=== PATIENT | female | born 1930 | race Caucasian/White ===

== ENCOUNTER 2016-10-19 08:39 | Inpatient (IN) | payer OTHER, MEDICARE ==
[~2016-10-19] VITALS: Ht 152.4 cm; Wt 38.2 kg
[~2016-10-19 08:39] MED LIST: APAP325 MG PR; CALAN PO; COUGH100 MG/5 M PO; DIVALPROEX SOD125 MG PO; DULCOLAX5 MG PR; FLEET ENEMA 131 UNIT PR; FUROSEMIDE40 MG PO; IPRATROPIUM/ SOL ALB INH; LORAZEPAM INT2 MG/ML PO; MAPAP325 MG PO; MELATONIN3 MG PO; MILK OF MAGNESI30 ML PO; MIRALAX17 GM PO; MULTAQ 400MG400 MG PO; ROZEREM8 MG PO; TRANS SCOPE PAT1 PAT ID; TRAZODONE50 MG PO
--- NOTE | 2016-10-19 08:39 | NUR ---
PATIENT DIRECTLY TO CT SCAN UPON EMS ARRIVAL, ACCOMPANIED BY EMS, RN, AND DR DELGADO. REMAINS ON CARDIAC MONTIOR.
--- NOTE | 2016-10-19 08:49 | NUR ---
EKG ORDERED PER PROVIDER
--- NOTE | 2016-10-19 09:02 | CT SCAN REPORT ---
EXAMINATION: CT HEAD WITHOUT CONTRAST CLINICAL INFORMATION: Right-sided weakness. COMPARISON: 06/25/2015. TECHNIQUE: Contiguous axial images of the brain were obtained without IV contrast. DLP: 621 mGy-cm. FINDINGS: There are no pathologic extra-axial fluid collections. The lateral, third, fourth ventricles are mildly prominent, but stable, age-appropriate and concordant with the appearance of the sulci. There is no evidence for acute intraparenchymal hemorrhage or infarct. 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 There is no shift of midline structures. The paranasal sinuses and mastoid air cells are clear. There are no osseous lesions. IMPRESSION: No evidence for acute intracranial injury. Stable age-appropriate appearance of the brain. Left frontal meningioma. The aforementioned was communicated to Dr. Quiroz at 0900 hours.
--- NOTE | 2016-10-19 09:10 | ED NEURO DEFICIT/STROKE ---
See Addendum History of Present Illness General Chief Complaint: Neuro Symptoms/ Deficit Stated Complaint: BIBA R SIDED WEAKNESS Source: family, old records, EMS, [facility] Exam Limitations: clinical condition Vital Signs & Intake/Output Vital Signs & Intake/Output Vital Signs Date Time Temp Pulse Resp B/P B/P Pulse O2 O2 Flow FiO2 Mean Ox Delivery Rate 10/19 1020 97.2 126 16 122/82 100 Nasal 4.0L Cannula 10/19 0932 133 159/74 10/19 0859 98.2 133 16 159/74 96 Nasal 4.0L Cannula Allergies Coded Allergies: NO KNOWN ALLERGIES (02/13/12) Reconcile Medications Acetaminophen (Mapap) 325 MG TABLET 650 MG PO EVERY FOUR HOURS PRN PAIN OR TEMP (Reported) Divalproex Sodium 125 MG CAP.SPRINK 250 MG PO DAILY SEIZURES (Reported) Fleet Enema (Fleet Enema 135 Ml) 19 GRAM-7 GRAM/118 ML ENEMA IF BISACODYL INEFFECTIVE (Reported) Guaifenesin 100 MG/5 ML LIQUID 100 MG PO Q6 PRN COUGH (Reported) [IPRATROPIUM/ GLORIA ALB] INH 0.02 INH Q6 DYSPNEA (Reported) LORAZEPAM (Lorazepam Intensol Oral Soln 2MG/Ml) 2 MG/ML ORAL.CONC 0.5 MG PO Q8 PRN ANXIETY (Reported) Magnesium Hydroxide (Milk Of Magnesia 30ML) 400 MG/5 ML ORAL.SUSP 30 ML PO DAILY PRN CONSTIPATION (Reported) Melatonin 3 MG TAB 1 TAB PO AT BEDTIME sleep Polyethylene Glycol 3350 (Miralax) 17 GRAM/DOSE POWDER 17 GM PO DAILY PRN CONSTIPATION (Reported) Scopolamine Hydrobromide (Transderm-Scop) 1.5MG/3DAY PATCH.TD.3 DIZZINESS ( Reported) TRAZODONE HCL (Trazodone HCl) 50 MG TABLET 50 MG PO AT BEDTIME SLEEP HELP ( Reported) Verapamil (Calan 80 MG Tablet) 80 MG TAB 1 TAB PO TID heart health Triage Nurses Notes Reviewed? yes HPI: Patient sent in from extended care facility for evaluation of right-sided weakness, EKG and a left gaze. The night nurse states that at 6:30 she found her with difficulty breathing and appeared very lethargic so she put her on some oxygen. There is a nurse check on her at 7:30 and found her a phasic with right -sided weakness and left gaze. Patient does have a history of A. fib but is not on anticoagulation. Sr. states that she was bruising a lot so her anticoagulation was stopped. Past History Travel History Traveled to [place] past 21 day No Medical History Any Pertinent Medical History? 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 vitamin D deficiency, dermatitis History of MRSA: No History of VRE: No History of CDIFF: No Surgical History Surgical History: non-contributory, N Psychosocial History Who do you live with W10 Services at Home NONE What is your primary language Guinean Tobacco Use: Cognitive Impairment Family History Family History, If Any: FATHER (myocardial infarction at age 60; leukemia). MOTHER (CVA; myocardial infarction at age 75). SISTER SISTER SISTER (breast cancer at age 60). BROTHER (myocardial infarction at age 70). SISTER (lymphosarcoma). Relation not specified for: FH: Alzheimers disease Hx Contributory? No Review of Systems Review of Systems Constitutional: Reports: see HPI. Neurological/Psychological: Reports: see HPI. Physical Exam Physical Exam General Appearance: severe distress Head: atraumatic Eyes: Bilateral: other (FORCED LEFT GAZE). Ears, Nose, Throat: normal ENT inspection, DRY MUCUS MEMBRANES Neck: normal inspection, supple Respiratory: normal breath sounds, chest non-tender, no respiratory distress, lungs clear Cardiovascular: normal peripheral pulses, tachycardia, irregularly irregular Gastrointestinal: normal bowel sounds, soft Extremities: edema Psychiatric: unresponsive Cranial Nerves: abnormal eye position, abnormal gag reflex, facial asymmetry, NO GAG REFLEX Core Measures CVA/TIA Diagnosis: Yes NIH Stroke Scale: Total 27 Date Last Known Well: 10/19/16 Time Last Known Well: 729 Neurological S/S of CVA: Difficulty Speaking, Facial Hemiparesis, Right Hemiparesis Symptom Start Date: 10/19/16 Symptom Start Time: 729 Reason tPA not ordered+ Medical Contraindication Severe Sepsis Present: No Septic Shock Present: No Progress Differential Diagnosis: electrolyte imbalance, intracranial Hem., intracranial mass/tumor, stroke Plan of Care: Orders Procedure Date/time Status Admit to inpatient 10/19 1039 Active Add-on Test (ER Only) 10/19 912 Active Telemetry/Management Trainee Program Stores 10/19 912 Active URINALYSIS 10/19 912 Active Add-on Test (ER Only) 10/19 910 Active TROPONIN LEVEL 10/19 902 Complete DEPAKOTE LEVEL 10/19 902 Complete COMPREHENSIVE METABOLIC PANEL 10/19 901 Complete CBC WITHOUT DIFFERENTIAL 10/19 901 Complete EKG 10/19 0849 Active Laboratory Tests 10/19/16902: Anion Gap 7, Estimated GFR > 60, BUN/Creatinine Ratio 48.6 H, Glucose 91, Calcium 8.4, Total Bilirubin 0.7, AST 23, ALT 28, Alkaline Phosphatase 71, Troponin I < 0.01, Total Protein 6.6, Albumin 3.6, Globulin 3.0, Albumin/ Globulin Ratio 1.2, CBC w Diff MAN DIFF ORDERED, RBC 3.91 L, MCV 96.3, MCH 31.8 H, RDW 14.4, MPV 8.4, Gran % 66.4, Lymphocytes % 19.6 L, Monocytes % 11.0 H, Eosinophils % 2.5, Basophils % 0.5, Absolute Granulocytes 3.2, Absolute Lymphocytes 1.0 L, Absolute Monocytes 0.5, Absolute Eosinophils 0.1, Absolute Basophils 0, Platelet Estimate DECREASED, Polychromasia 1+, Basophilic Stippling 1+, PUBS MCHC 33.0, Valproic Acid < 10.0 L Diagnostic Imaging: Viewed by Me: CT Scan. Discussed w/RAD: CT Scan. Radiology Impression: PATIENT: ZULEMA SORTO PRESENT AGE: 86 PATIENT ACCOUNT NO: [id number] : 30 LOCATION: [facility] ORDERING PHYSICIAN: KIM LINK DO (TBS) SERVICE DATE: 10/19/16 EXAM TYPE: CAT - CT HEAD WO IV CONTRAST EXAMINATION: CT HEAD WITHOUT CONTRAST CLINICAL INFORMATION: Right-sided weakness. COMPARISON: 06/25/2015. TECHNIQUE: Contiguous axial images of the brain were obtained without IV contrast. DLP: 621 mGy-cm. FINDINGS: There are no pathologic extra-axial fluid collections. The lateral, third, fourth ventricles are mildly prominent, but stable, age- appropriate and concordant with the appearance of the sulci. There is no evidence for acute intraparenchymal hemorrhage or infarct. 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 There is no shift of midline structures. The paranasal sinuses and mastoid air cells are clear. There are no osseous lesions. IMPRESSION: No evidence for acute intracranial injury. Stable age-appropriate appearance of the brain. Left frontal meningioma. The aforementioned was communicated to Dr. Quiroz at 0900 hours. DICTATED BY: FRANCISCO SMALL MD DATE /TIME DICTATED:10/19/16851 OUTBOARD MOTOR MECHANIC:REYNALDO DATE/TIME TRANSCRIBED: 10/19/16851 CONFIDENTIAL, DO NOT COPY WITHOUT APPROPRIATE AUTHORIZATION. < Electronically signed in Other Vendor System> SIGNED BY: FRANCISCO SMALL MD 10/19/16901 Initial ED EKG: AFIB (WITH RVR), nonspecific ST T wave chg Prior EKG: unchanged Rhythm Strip: atrial fibrillation Comments: Discussed with her sister, patient is at very high risk of intracranial hemorrhage after TPA so TPA will not be given. Patient has no gag reflex. Back in 2014 the patient was DNR/DNI according to the medical records however there was no mention of this on the W 10. The sister would not like her intubated at this time however states that she will reconsider if her situation worsens. Case was discussed with Dr. Martin. He will consult on the patient. Patient has been evaluated by Dr. Lewis. Departure Departure Disposition: STILL A PATIENT Condition: Guarded Clinical Impression Primary Impression: CVA (cerebral vascular accident) Secondary Impressions: Atrial fibrillation with RVR Referrals: BLAKE DEVRIES,KARINE Workman (PCP/Family) Departure Forms: Customer Survey General Discharge Information Admission Note Spoke With: ORIANA JIMENEZ MD Documentation of Exam: Documentation of any treatments & extenuating circumstances including Concerns Regarding Discharge (functional status, medication knowledge or non-compliance, living conditions, etc.) that warrant an admission rather than observation: [ TELE MONITORING, NEUROLOGICAL CONSULTATION, CARDIOLOGY CONSULTATION, PT IS DNR/ DNI] Critical Care Note Critical Care Note Critical Care Time: mins: (90 MIN)
[2016-10-19 09:20] LABS: ABSOLUTE BASOPHIL COUNT 0 /CUMM (0.0-0.2); ABSOLUTE EOSINOPHIL COUNT 0.1 /CUMM (0.0-0.7); ABSOLUTE GRANULOCYTE CT 3.2 /CUMM (1.4-6.5); ABSOLUTE MONOCYTE COUNT 0.5 /CUMM (0.10-0.60); BASOPHIL % 0.5 % (0.0-2.0); EOSINOPHIL % 2.5 % (0-5); GRANULOCYTE % 66.4 % (42.2-75.2); HEMATOCRIT 37.7 % (37-47); MEAN CORPUSCULAR HGB 31.8 PG (27.0-31.0); MEAN CORPUSCULAR VOLUME 96.3 FL (81.0-99.0); MEAN PLATELET VOLUME 8.4 FL (7.4-10.4); PLATELET COUNT 118 /CUMM (130-400); RBC DISTRIBUTION WIDTH 14.4 % (11.5-14.5); RED BLOOD CELL CT 3.91 /CUMM (4.20-5.40); WHITE BLOOD CELL COUNT 4.9 /CUMM (4.8-10.8)
--- NOTE | 2016-10-19 09:28 | NUR ---
INSIDE SALES SUPERVISOR AT BEDSIDE PER PATIENT'S FAMILY REQUEST.
--- NOTE | 2016-10-19 09:33 | NUR ---
MEDICATED WITH 10MG CARDIZEM (SEE MAR)
--- NOTE | 2016-10-19 10:12 | NUR ---
THIS RN CALLED [facility], SPOKE WITH PTS NURSE. SHE STATED THAT THE OVERNIGHT NURSE FOUND PT AT 630AM TO BE LETHARGIC, NOT ACTING HERSELF AND HAVING SOME DIFFICULTY BREATHING, SO THEY PUT HER ON SOME OXYGEN. THE DAY NURSE THAT I SPOKE TO STATED THAT SHE SAW PT AT 730AM WITH THE RT SIDED WEAKNESS. REPORTS THAT THE TIME BEFORE 630AM THAT PT WOULD HAVE BEEN SEEN WOULD BE SOMETIME IN THE MIDDLE OF THE NIGHT. DR DELGADO AND DR KUHN AWARE.
--- NOTE | 2016-10-19 10:33 | Cons- Neurology ---
General Information and HPI Consulting Request Date of Consult: 10/19/16 Requested By: Dr Quiroz Reason for Consult: CVA Source of Information: Dr Quiroz, pt's sister, & ED RN who called ECF Exam Limitations: unable to give history History of Present Illness: 86-year-old right-handed woman with chronic atrial fibrillation not on anticoagulation reportedly due to prior bruising, ECF resident, with dementia but reportedly conversant, able to feed herself, and able to walk short distances with assist. On Depakote low-dose reportedly for mood or agitation. Overnight she reportedly slept poorly. Her sister reports that she has seemed short of breath for the past few days. The night nurse at 6:30 AM reported to her as being "lethargic" at 7:30 AM, the morning nurse noticed a leftward gaze preference and right-sided weakness. We were not able to reach the night nurse so we have no further details about her lethargic state at 6:30 AM. Here in the ED, deficits have persisted. Allergies/Medications Allergies: Coded Allergies: NO KNOWN ALLERGIES (02/13/12) Home Med List: Acetaminophen (Mapap) 325 MG TABLET 650 MG PO EVERY FOUR HOURS PRN PAIN OR TEMP (Reported) Divalproex Sodium 125 MG CAP.SPRINK 250 MG PO DAILY SEIZURES (Reported) Fleet Enema (Fleet Enema 135 Ml) 19 GRAM-7 GRAM/118 ML ENEMA IF BISACODYL INEFFECTIVE (Reported) Guaifenesin 100 MG/5 ML LIQUID 100 MG PO Q6 PRN COUGH (Reported) [IPRATROPIUM/ GLORIA ALB] INH 0.02 INH Q6 DYSPNEA (Reported) LORAZEPAM (Lorazepam Intensol Oral Soln 2MG/Ml) 2 MG/ML ORAL.CONC 0.5 MG PO Q8 PRN ANXIETY (Reported) Magnesium Hydroxide (Milk Of Magnesia 30ML) 400 MG/5 ML ORAL.SUSP 30 ML PO DAILY PRN CONSTIPATION (Reported) Melatonin 3 MG TAB 1 TAB PO AT BEDTIME sleep Polyethylene Glycol 3350 (Miralax) 17 GRAM/DOSE POWDER 17 GM PO DAILY PRN CONSTIPATION (Reported) Scopolamine Hydrobromide (Transderm-Scop) 1.5MG/3DAY PATCH.TD.3 DIZZINESS ( Reported) TRAZODONE HCL (Trazodone HCl) 50 MG TABLET 50 MG PO AT BEDTIME SLEEP HELP ( Reported) Verapamil (Calan 80 MG Tablet) 80 MG TAB 1 TAB PO TID heart health Current Medications: Current Medications Sig/Gabriel Start time Last Medication Dose Route Stop Time Status Admin Diltiazem HCl 0 .STK-MED ONE 10/19 930 DC .ROUTE Diltiazem HCl 10 MG ONCE ONE 10/19 914 DC 10/19 IV PUSH 10/20 915 0932 Past History Travel History Traveled to [place] past 21 day No Medical History Neurological: dementia EENT: presbycussis Cardiovascular: AFIB, CHF, hypertension, hyperlipidemia, 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 vitamin D deficiency, dermatitis Surgical History Surgical History: none, non-contributory Family History Relations & Conditions If Any: FATHER (myocardial infarction at age 60; leukemia). MOTHER (CVA; myocardial infarction at age 75). SISTER SISTER SISTER (breast cancer at age 60). BROTHER (myocardial infarction at age 70). SISTER (lymphosarcoma). Relation not specified for: FH: Alzheimers disease Psychosocial History Where Do You Live[facility] Primary Language: Bahraini Smoking Status: Unknown If Ever Smoked Power of Printing Press Operator Apprentice/HCP? yes (sister) Functional Ability ADLs Needs Assist: dressing, eating, toileting, bathing. Ambulation: wheelchair, arm in arm assist bed to bathroom IADLs Needs Assist: shopping, housework, finances, food prep, transportation, medication admin. Unknown: telephone. Employment History Employment: Retired Exam & Diagnostic Data Vital Signs and I&O Vital Signs Date Time Temp Pulse Resp B/P B/P Pulse O2 O2 Flow FiO2 Mean Ox Delivery Rate 10/19 1020 97.2 126 16 122/82 100 Nasal 4.0L Cannula 10/19 0932 133 159/74 10/19 0859 98.2 133 16 159/74 96 Nasal 4.0L Cannula Intake & Output 10/19 1600 10/19 0800 10/19 0000 Intake Total Output Total Balance Patient 89 lb 11.65 oz Weight Weight Bed scale Measurement Method Physical Exam: Frail-appearing, eyes closed, mildly labored respirations Head: Normocephalic atraumatic Neck: Supple Heart irregular rate and rhythm Extremities trace pedal edema with erythema bilaterally. Intact peripheral pulses Neurologic exam: Lethargic mute Follows no commands Opens eyes partially with stimulation Resists forced eye opening Leftward gaze deviation Pupils equal round and reactive to light Fundi benign Mildly flattened right nasolabial fold Tongue is midline, and she intermittently protrudes the tongue in a dyskinetic appearing fashion Hearing could not be accurately assessed, but is said to be diminished at baseline Motor: Normal spontaneous movements of the left arm and leg Flaccid paralysis of the right arm and leg Deep tendon reflexes diffusely hypoactive, more so on the right Plantar responses flexor on the left extensor on the right Last 48 Hours of Lab Results: Laboratory Tests 10/19 09 Chemistry Sodium (137 - 145 mmol/L) 143 Potassium (3.5 - 5.1 mmol/L) 4.6 Chloride (98 - 107 mmol/L) 100 Carbon Dioxide (22 - 30 mmol/L) 36 H Anion Gap (5 - 16) 7 BUN (7 - 17 mg/dL) 34 H Creatinine (0.5 - 1.0 mg/dL) 0.7 Estimated GFR (>60 ml/min) > 60 BUN/Creatinine Ratio (7 - 25 %) 48.6 H Glucose (65 - 99 mg/dL) 91 Calcium (8.4 - 10.2 mg/dL) 8.4 Total Bilirubin (0.2 - 1.3 mg/dL) 0.7 AST (14 - 36 U/L) 23 ALT (9 - 52 U/L) 28 Alkaline Phosphatase (<127 U/L) 71 Troponin I (< 0.11 ng/ml) < 0.01 Total Protein (6.3 - 8.2 g/dL) 6.6 Albumin (3.5 - 5.0 g/dL) 3.6 Globulin (1.9 - 4.2 gm/dL) 3.0 Albumin/Globulin Ratio (1.1 - 2.2 %) 1.2 Hematology CBC w Diff MAN DIFF ORDERED WBC (4.8 - 10.8 /CUMM) 4.9 RBC (4.20 - 5.40 /CUMM) 3.91 L Hgb (12.0 - 16.0 G/DL) 12.4 Hct (37 - 47 %) 37.7 MCV (81.0 - 99.0 FL) 96.3 MCH (27.0 - 31.0 PG) 31.8 H RDW (11.5 - 14.5 %) 14.4 Plt Count (130 - 400 /CUMM) 118 L MPV (7.4 - 10.4 FL) 8.4 Gran % (42.2 - 75.2 %) 66.4 Lymphocytes % (20.5 - 51.1 %) 19.6 L Monocytes % (1.7 - 9.3 %) 11.0 H Eosinophils % (0 - 5 %) 2.5 Basophils % (0.0 - 2.0 %) 0.5 Absolute Granulocytes (1.4 - 6.5 /CUMM) 3.2 Absolute Lymphocytes (1.2 - 3.4 /CUMM) 1.0 L Absolute Monocytes (0.10 - 0.60 /CUMM) 0.5 Absolute Eosinophils (0.0 - 0.7 /CUMM) 0.1 Absolute Basophils (0.0 - 0.2 /CUMM) 0 Platelet Estimate (ADEQUATE) DECREASED Polychromasia 1+ Basophilic Stippling 1+ PUBS MCHC (33.0 - 37.0 G/DL) 33.0 Toxicology Valproic Acid (50 - 120 ug/mL) < 10.0 L Imaging/Other Studies: PATIENT: ZULEMA SORTO PRESENT AGE: 86 PATIENT ACCOUNT NO: [id number] : 30 LOCATION: [facility] ORDERING PHYSICIAN: KIM LINK DO (TBS) SERVICE DATE: 10/19/16 EXAM TYPE: CAT - CT HEAD WO IV CONTRAST EXAMINATION: CT HEAD WITHOUT CONTRAST CLINICAL INFORMATION: Right-sided weakness. COMPARISON: 06/25/2015. TECHNIQUE: Contiguous axial images of the brain were obtained without IV contrast. DLP: 621 mGy-cm. FINDINGS: There are no pathologic extra-axial fluid collections. The lateral, third, fourth ventricles are mildly prominent, but stable, age-appropriate and concordant with the appearance of the sulci. There is no evidence for acute intraparenchymal hemorrhage or infarct. 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 There is no shift of midline structures. The paranasal sinuses and mastoid air cells are clear. There are no osseous lesions. IMPRESSION: No evidence for acute intracranial injury. Stable age-appropriate appearance of the brain. Left frontal meningioma. The aforementioned was communicated to Dr. Quiroz at 0900 hours. DICTATED BY: FRANCISCO SMALL MD DATE/TIME DICTATED:10/19/16851 PESTICIDE CONTROL INSPECTOR:REYNALDO DATE/TIME TRANSCRIBED:10/19/16851 CONFIDENTIAL, DO NOT COPY WITHOUT APPROPRIATE AUTHORIZATION. <Electronically signed in Other Vendor System> SIGNED BY: FRANCISCO SMALL MD 10/19/16 0902 Assessment/Plan Assessment: Acute left MCA territory ischemic stroke with uncertain onset time, approaching the 3 hour window at the time of discussions between myself, the patient's power of health care attorney, and Dr. Quiroz. Chronic atrial fibrillation, therefore likely a cardioembolic event. Recommendations: The final decision was to defer TPA Would therefore admit to telemetry with neuro checks Nothing by mouth pending swallow evaluation Hydrate with isotonic IV fluids in the meantime DVT prophylaxis with subcutaneous heparin or Lovenox Aspirin per rectum daily until able to take by mouth Statin when able to take by mouth Prognosis is guarded Carotid ultrasound is optional at this point. Regardless, she would be a suboptimal endarterectomy candidate PT, OT if her level of alertness and responsiveness improves Copies To: ANGELES DEVRIES,MATT Adler Consult Acknowledgment - Thank you for your consult request.
--- NOTE | 2016-10-19 11:02 | NUR ---
STRAIGHT CATHED PT WITH FEMALE STUDENT TIM IN ROOM. 100ML OBTAINED, SAMPLE SENT TO LAB. PT TURNED AND REPOSITIONED.
--- NOTE | 2016-10-19 11:08 | NUR ---
assumed care of pt
--- NOTE | 2016-10-19 11:23 | History & Physical ---
RAMAKRISHNA DEVRIES,FORM[facility]LY [facility] 10/19/16 1123: General Information and HPI MD Statement: I have seen and personally examined ZULEMA SORTO and documented this H&P. The patient is a 86 year old F who presented with a patient stated chief complaint of right sided weakness. 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 The patient is nonconversant, and not following any commands, and did not provide any history. History was taken from the patient's sister, who is also the power of attorney at law. She reported that at baseline the patient is able to make a small conversation especially by saying yes and no, and can communicate what she wants, is able to feed herself and is able to walk a few distant with an assist of one or 2 even without a walker. However today, between 6 AM - 7:30 AM, she was found to be awake but very lethargic, not responding to any commands. He was also found to have right-sided weakness with flaccidity in her right upper and lower extremity. Her sister also reported that she was not able to sleep too well last night and has been feeling very short of breath the past few days. Her sister reports that she has seemed short of breath for the past few days. The morning nurse noticed a leftward gaze preference and right-sided weakness. Since the patient has come to the ED the symptoms have persisted. Onto the cystoscope patient has had a history of A. fib but and accommodation was stopped by Dr. Lozano 1-2 years ago, reason unknown. She also reported that Dr. Rice is her primary construction trench digger but they have not seen him since 3-4 years The patient is unable to provide any review of systems. Allergies/Medications Allergies: Coded Allergies: NO KNOWN ALLERGIES (02/13/12) Home Med list Calcium Polycarbophil (Fiber Lax) 625 MG TABLET 1 TAB PO QPM SUPPLEMENT ( Reported) Reason to Stop at ADM: NPO Divalproex Sodium (Depakote Sprinkle) 125 MG CAP.SPRINK 1 CAP PO DAILY agitation (Reported) Reason to Stop at ADM: PO to IV Ergocalciferol (Vitamin D2) (Vitamin D2) 50,000 UNIT CAPSULE 1 CAP PO Q30D SUPPLEMENT (Reported) Reason to Stop at ADM:NPO Furosemide 20 MG TABLET 1 TAB PO DAILY FLUID (Reported) Reason to Stop at ADM: NPO, DEHYDRATED Melatonin 3 MG TABLET 1 TAB PO QPM SLEEP (Reported) Reason to Stop at ADM: LETHARGIC Mirtazapine 15 MG TABLET 0.5 TAB PO QPM DEPRESSION (Reported) Reason to Stop at ADM: AMS, NPO Trazodone HCl 50 MG TABLET 0.5 TAB PO BID DEPRESSION (Reported) Reason to Stop at ADM: NPO AND AMS Verapamil HCl (Verapamil ER) 240 MG CAP24H.PEL 1 CAP PO DAILY HTN (Reported) Reason to Stop at ADM: WILL CHANGE TO IV PT IS NPO Compliance With Home Meds: GOOD Past History Travel History Traveled to [place] past 21 day No Medical History Neurological: dementia EENT: presbycussis Cardiovascular: AFIB, CHF, hypertension, hyperlipidemia, 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 vitamin D deficiency, dermatitis History of MRSA: No History of VRE: No History of CDIFF: No Surgical History Surgical History: PACEMAKER PLACEMENT ECHO Results (as available) Date of last Echo 12/12/14 EF% 65 Past Family/Social History Family History Relations & Conditions if any FATHER (myocardial infarction at age 60; leukemia). MOTHER (CVA; myocardial infarction at age 75). SISTER SISTER SISTER (breast cancer at age 60). BROTHER (myocardial infarction at age 70). SISTER (lymphosarcoma). Relation not specified for: FH: Alzheimers disease Psychosocial History Where do you live? Long-Term Facility Primary Language: Puerto Rican Smoking Status: Unknown If Ever Smoked Power of Soldering Machine Operator Automatic/HCP? yes (sister) Functional Ability ADLs Needs Assist: dressing, eating, toileting, bathing. Ambulation: wheelchair arm in arm assist bed to bathroom IADLs Needs Assist: shopping, housework, finances, food prep, telephone, transportation, medication admin. Employment History Employment Retired Review of Systems Review of Systems Constitutional: Reports: see HPI. EENTM: Reports: see HPI. Cardiovascular: Reports: see HPI. Respiratory: Reports: see HPI. GI: Reports: see HPI. Genitourinary: Reports: see HPI. Musculoskeletal: Reports: see HPI. Skin: Reports: see HPI. Neurological/Psychological: Reports: see HPI. Hematologic/Endocrine: Reports: see HPI. Immunologic/Allergic: Reports: see HPI. Exam & Diagnostic Data Last 24 Hrs of Vital Signs/I&O Vital Signs Date Time Temp Pulse Resp B/P B/P Pulse O2 O2 Flow FiO2 Mean Ox Delivery Rate 10/19 1352 96.2 106 16 120/77 100 Nasal 4.0L Cannula 10/19 1152 97.8 121 18 136/69 100 Nasal 4.0L Cannula 10/19 1020 97.2 126 16 122/82 100 Nasal 4.0L Cannula 10/19 0932 133 159/74 10/19 0900 97 Nasal 4.0L Cannula 10/19 0859 98.2 133 16 159/74 96 Nasal 4.0L Cannula Intake & Output 10/19 1600 10/19 0800 05 0000 Intake Total Output Total Balance Patient 89 lb 11.65 oz Weight Weight Bed scale Measurement Method Physical Exam General Appearance Alert, No Acute Distress, UNABLE TO PROVIDE JT HISTORY, AWAKE BUT DOES NOT RESPOND TO ANY QUESTIONS, ORIENTATION CAN NOT BE ASSESED. cOPERATIVE DURING EXAM, VERY FRAIL AND WEAK HEENT PERRLA, DRY MUCOUS MEMBRANES Neck Supple, No JVD, TILTING TOWARDS HER LEFT SIDE Cardiovascular Normal S1, Normal S2, No Murmurs, IRREGULARLY IREEGULAR Lungs Clear to Auscultation, Normal Air Movement Abdomen Normal Bowel Sounds, Soft, No Tenderness Neurological Normal Tone, NON-VERBAL, GAIT NOT ASSESSED DOES NOT FOLLOW COMMANDS STRENGHT CAN NOT BE ASSESSED THE PATIENT IS UNABLE TO MOVE EXTREMITIES UPON COMMAND AGAINST RESISTANCE, BUT ABLE TO MOVE THEM VOLUNTARILY, RANDOMLY. RIGHT UPPER AND LOWER EXTREMITY FLACCID WITH LESS RANDOM MOVEMENTS, LEFTWARD GAZE DEVIATION, FLATTENED RIGHT NASOLABIAL FOLD, TONGUE PROTUSION BUT INTERMITTENTLY RETRACTS IT BACK IN THE MOUTH, HYPOACTIVE DTRS, POSITIVE BABINSKI ON THE RIGHT SIDE Extremities Normal Pulses, BILATERAL FEET EDEMA, COLD EXTREMITIES, PULESE PALPABLE Vascular Pulses Symmetrical Last 24 Hrs of Labs/Fransico: Laboratory Tests 10/19/16 1115: Urine Color YEL, Urine Clarity CLEAR, Urine pH 7.0, Ur Specific Lemmon 1.015, Urine Protein NEG, Urine Ketones NEG, Urine Nitrite NEG, Urine Bilirubin NEG, Urine Urobilinogen 2.0 H, Ur Leukocyte Esterase NEG, Ur Microscopic SEDIMENT EXAMINED, Urine RBC 10-15 H, Urine WBC RARE, Ur Epithelial Cells MOD H, Urine Bacteria RARE H, Urine Mucus RARE, Urine Hemoglobin SMALL H, Urine Glucose NEG 10/19/16 0903: Anion Gap 7, Estimated GFR > 60, BUN/Creatinine Ratio 48.6 H, Glucose 91, Calcium 8.4, Total Bilirubin 0.7, AST 23, ALT 28, Alkaline Phosphatase 71, Troponin I < 0.01, Total Protein 6.6, Albumin 3.6, Globulin 3.0, Albumin/ Globulin Ratio 1.2, CBC w Diff MAN DIFF ORDERED, RBC 3.91 L, MCV 96.3, MCH 31.8 H, RDW 14.4, MPV 8.4, Gran % 66.4, Lymphocytes % 19.6 L, Monocytes % 11.0 H, Eosinophils % 2.5, Basophils % 0.5, Absolute Granulocytes 3.2, Absolute Lymphocytes 1.0 L, Absolute Monocytes 0.5, Absolute Eosinophils 0.1, Absolute Basophils 0, Platelet Estimate DECREASED, Polychromasia 1+, Basophilic Stippling 1+, PUBS MCHC 33.0, Valproic Acid < 10.0 L Diagnostic Data EKG Results A FIB, 143, NO ST-T WAVE CHANGES Other Results There are no pathologic extra-axial fluid collections. The lateral, third, fourth ventricles are mildly prominent, but stable, age-appropriate and concordant with the appearance of the sulci. There is no evidence for acute intraparenchymal hemorrhage or infarct. 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 There is no shift of midline structures. The paranasal sinuses and mastoid air cells are clear. There are no osseous lesions. 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 Vitals on admission showed temperature 98.2, pulse rate of 133, respiratory rate of 16, blood pressure 159/74 oxygen saturation 96% on 4 L of nasal cannula First troponin has been negative with no significant ST-T wave EKG change except for A. fib Assessment and plan: 1. Left MCA ischemic stroke: - The patient presented with right-sided weakness, leftward gaze, intermittent temperatures fusion, nutrition completely nonverbal and not following any commands, with CT evidence of left MCA territory ischemic stroke. Although it is suggested that the symptoms might have started between 6:54 AM. As the time of onset is uncertain and the patient already approached her window, there was discussion between the neurologist, Dr. Lewis and the patient's power of attorney at law and the decision was made to defer TPA. This event is likely secondary thromboembolic because of a history of A. fib and not being on anticoagulation - The patient and placed on death claim clerk on telemetry floor - We'll check 3 sets of troponins and EKGs to rule out ACS - We'll keep the patient nothing by mouth - We'll get official swallow evaluation - 300 mg per rectal aspirin given in the ED, will continue with aspirin 300 mg per rectal daily - We'll start pravastatin once the patient is to tolerate by mouth - Start on gentle hydration with normal saline at 50 mL per hour - We will get physical therapy and occupational therapy report - We will get carotid ultrasound Doppler of all though it could also be deferred as the patient is a suboptimal candidate for surgery - We'll get an echocardiogram - Neurology is already on board 2. History of A. fib: The patient was found to be in rapid A. fib, with heart rate 150s, received 1 IV push Cardizem 10 mg - The patient has not been on any anticoagulation for a while and was stopped, as is unknown - She has not been compliant with her follow-ups with Dr. Toro either - As the patient is nothing by mouth awaiting official swallow eval, will hold off on by mouth Cardizem and if needed will start IV Cardizem when necessary to control the rate - However, if the rate continues to remain fast and she there is a likelihood she will require frequent cardizem pushes, will then start IV Cardizem drip, untill she is able to take PO 3. History of dementia/mood disorder/agitation: The patient is apparently on low-dose of Depakote for mood disorder/agitation as per her sister, and not for a seizure disorder - We consider starting on low-dose Depakote IV if needed in case of agitation 4. History of diastolic CHF: - Currently the patient does not seem to be in florid CHF in fact is dehydrated, and altered - Because we are keeping him nothing by mouth, will hold Lasix - We will provide gentle hydration 4. As patient is nothing by mouth will hold off on mirtazapine, trazodone, ergocalciferol, fibri and melatonin 5. Nothing by mouth 6. Subcutaneous heparin for DVT prophylaxis 7. CODE STATUS: The Depakote and states the patient is DNI/DNR however while having a conversation with the patient's sister/who is also power of attorney at law she was very hesitant in making the patient DNR. She does not want the patient to be intubated as the patient would not want that either but she wants "something" done in case of an emergency or if she goes into cardiac arrest. Had a very long discussion with the patient's sister explaining her the pros and cons of CPR especially in an old frail lady was a small habitus, osteoporotic/brittle bones and increased AP diameter. She finally decided to give Zulema at least 24 hours and see how she responds to conservative/medical treatment before she makes a decision to change her to a complete DNI DNR. The patient has poor prognosis and would be beneficial for Dr. Lozano/Dr. Larry and the medical team to have a conversation with the patient's power of attorney at law in the next 24 hours regarding her CODE STATUS and prognosis. A main fact benefit from being comfort. As Ranked By This Provider Problem List: 1. ATRIAL FIBRILATION 2. Dementia 3. Cardiac pacemaker procedure 4. Benign essential hypertension 5. CVA (cerebral vascular accident) Core Measures/Miscellaneous Acute Coronary Syndrome ACS Diagnosis: No Cerebrovascular Accident CVA/TIA Diagnosis: Yes NIH Stroke Scale: Total 12 Date Last Known Well: 10/19/16 Time Last Known Well: 729 Neurological S/S of CVA: Difficulty Speaking, Facial Hemiparesis, Right Hemiparesis Symptom Start Date: 10/19/16 Symptom Start Time: 0730 Reason tPA not ordered Medical Contraindication Bedside Swallow Eval Done: Yes Result of Evaluation: Fail (no gag reflex) Antithrombotic: Yes AFIB: Atrial Fibrillation Aflutter: No Anticoagulant: No No Anticoag d/t: Medication Refused (unknown why not on AC) Evidence of Atherosclerosis: Yes LDL Assessed Within 24 Hours: Yes Currently on Statin: Yes (once able to take PO) Rehab Needs Assessed: Medical Eval for Rehab PT Consult Ordered: Yes Congestive Heart Failure CHF Diagnosis: No Venous Thromboembolism VTE Risk Factors: Acute medical illness, Age > 40 No [facility] VTE prophylaxis d/t: No contraindications No VTE Pharm Prophylaxis d/t: No contraindications VTE Diagnosis: No VTE Type: NONE VTE Confirmed by (Test): NONE Severe Sepsis Severe Sepsis Present: No Septic Shock Septic Shock Present: No Miscellaneous Documentation Attending Case Discussed With: ORIANA JIMENEZ MD Primary Care Physician: KARINE LOZANO MD Patient sees these Specialists Dr. Rice ( along time ago) Dr. Lozano (PCP) Level of Patient Care: Telemetry Consults Needed: 1 Consulting Specialty: Cardiology Consulting Physician: Dr. Martin Reason for Consult: STROKE/A FIB Consults Needed: 2 Consulting Specialty: Neurology Consulting Physician: Dr. Lewis Reason for Consult: STROKE Resident Review Statement Resident Statement: examined this patient, discussed with family, reviewed EMR data (avail), discussed with nursing, reviewed images Other Findings: Same as Above ORIANA JIMENEZ MD 10/19/16 1524: Exam & Diagnostic Data Last 24 Hrs of Vital Signs/I&O Vital Signs Date Time Temp Pulse Resp B/P B/P Pulse O2 O2 Flow FiO2 Mean Ox Delivery Rate 10/19 1352 96.2 106 16 120/77 100 Nasal 4.0L Cannula 10/19 1152 97.8 121 18 136/69 100 Nasal 4.0L Cannula 10/19 1020 97.2 126 16 122/82 100 Nasal 4.0L Cannula 10/19 0932 133 159/74 10/19 0900 97 Nasal 4.0L Cannula 10/19 0859 98.2 133 16 159/74 96 Nasal 4.0L Cannula Intake & Output 10/19 1600 10/19 0800 10/19 0000 Intake Total Output Total Balance Patient 89 lb 11.65 oz Weight Weight Bed scale Measurement Method Attending MD Review Statement Attending Statement Attending MD Statement: examined this patient, discuss w/resident/PA/REVENUE TAX SPECIALIST, agreed w/resident/PA/REVENUE TAX SPECIALIST, discussed with family, reviewed EMR data (avail), reviewed images, amended to note Attending Assessment/Plan: Ms. Sorto is an 86-year-old resident of a long term facility who was noted to have a change in mental status earlier today. She presented to the ED with a dense right hemiparesis and gaze preference to the left. Past medical history was notable for atrial fibrillation (presently not on anticoagulants), dementia, and mood disorder treated with Depakote. Her vital signs are stable at present. Exam is notable for flaccid left hemiparesis and leftward gaze. A discussion was undertaken with patient's sister concerning the patient's treatment. At this time the sister requests a DNI status but is not willing to institute DNR status at this time. We will admit patient to telemetry and monitor her heart rate. She will be started on intravenous fluids. A swallow evaluation will be obtained and the patient will be made NPO until this is accomplished. Maintenance medications normally given by mouth will be held. Rate control if needed will be via IV diltiazem. Dr. Lewis's input is greatly appreciated.
--- NOTE | 2016-10-19 13:53 | NUR ---
FAMILY UPDATED WITH POC/ADMISSION.
[2016-10-19] MEDS ORDERED: FUROSEMIDE20 M1 PO (14:07)
[2016-10-19] MEDS ORDERED: VITAMIN D250000 UNIT PO (14:07)
[2016-10-19] MEDS ORDERED: VERAPAMIL ER240 MG PO (14:10)
[2016-10-19] MEDS ORDERED: MELATONIN3 M4 PO (14:11)
[2016-10-19] MEDS ORDERED: MIRTAZAPINE15 M2 PO (14:11)
[2016-10-19] MEDS ORDERED: DEPAKOTE SPRIN125 M1 PO ×2 (14:11→18:52)
[2016-10-19] MEDS ORDERED: FIBER LAX625 MG PO (14:12)
[2016-10-19] MEDS ORDERED: TRAZODONE HCL50 M1 PO ×2 (14:13→14:14)
--- NOTE | 2016-10-19 14:31 | NUR ---
NS INFUSING, MEDICATED ORDERED (SEE MAR)
--- NOTE | 2016-10-19 14:36 | NUR ---
PT ASSIGNED ROOM 172 BED 1.
--- NOTE | 2016-10-19 15:21 | Admission Certification ---
Admission Certification Certification Statement - As attending physician, I certify that at the time of - admission, based on clinical presentation, severity of - symptoms, need for further diagnostic testing and - therapeutic interventions, and risk of adverse outcomes - without in-hospital treatment, in my clinical assessment, - this patient requires an acute hospital stay for a minimum - of two nights or longer. I have also considered psychsocial - factors such as support system, advanced age, financial - issues, cognitive issues, and failed out-patient treatments, - past re-admission history, safety of patient, and lack of - compliance as applicable. Specific rationale supporting this admission is: Evaluation and treatment of acute left hemisphere bland infarct.
--- NOTE | 2016-10-19 15:53 | NUR ---
PT HAS A BED [id number]
--- NOTE | 2016-10-19 16:03 | NUR ---
REPORT CALLED TO NAHID
--- NOTE | 2016-10-19 17:18 | Cons- Cardiology ---
General Information and HPI Consulting Request Date of Consult: 10/19/16 Requested By: ORIANA JIMENEZ MD Reason for Consult: Stroke syndrome. Source of Information: old records Exam Limitations: not alert/orientated, clinical condition History of Present Illness: Mrs. 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 In the ED a CT of the head was performed and this is 10/19/2016 that revealedNo evidence for acute intracranial injury. Stable age-appropriate appearance of the brain. Left frontal meningioma. Allergies/Medications Allergies: Coded Allergies: NO KNOWN ALLERGIES (02/13/12) Home Med List: Calcium Polycarbophil (Fiber Lax) 625 MG TABLET 1 TAB PO QPM SUPPLEMENT ( Reported) Reason to Stop at ADM: NPO Divalproex Sodium (Depakote Sprinkle) 125 MG CAP.SPRINK 1 CAP PO DAILY agitation (Reported) Reason to Stop at ADM: PO to IV Ergocalciferol (Vitamin D2) (Vitamin D2) 50,000 UNIT CAPSULE 1 CAP PO Q30D SUPPLEMENT (Reported) Reason to Stop at ADM:NPO Furosemide 20 MG TABLET 1 TAB PO DAILY FLUID (Reported) Reason to Stop at ADM: NPO, DEHYDRATED Melatonin 3 MG TABLET 1 TAB PO QPM SLEEP (Reported) Reason to Stop at ADM: LETHARGIC Mirtazapine 15 MG TABLET 0.5 TAB PO QPM DEPRESSION (Reported) Reason to Stop at ADM: AMS, NPO Trazodone HCl 50 MG TABLET 0.5 TAB PO BID DEPRESSION (Reported) Reason to Stop at ADM: NPO AND AMS Verapamil HCl (Verapamil ER) 240 MG CAP24H.PEL 1 CAP PO DAILY HTN (Reported) Reason to Stop at ADM: WILL CHANGE TO IV PT IS NPO Past History Travel History Traveled to [place] past 21 day No Medical History Neurological: dementia EENT: presbycussis Cardiovascular: AFIB, CHF, hypertension, hyperlipidemia, 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 vitamin D deficiency, dermatitis Surgical History Surgical History: PACEMAKER PLACEMENT Family History Relations & Conditions If Any: FATHER (myocardial infarction at age 60; leukemia). MOTHER (CVA; myocardial infarction at age 75). SISTER SISTER SISTER (breast cancer at age 60). BROTHER (myocardial infarction at age 70). SISTER (lymphosarcoma). Relation not specified for: FH: Alzheimers disease Psychosocial History Where Do You Live? [facility] Primary Language: Citizen Of [place] Smoking Status: Unknown If Ever Smoked Power of Machine Wiper/HCP? yes (sister) Functional Ability ADLs Needs Assist: dressing, eating, toileting, bathing. Ambulation: wheelchair arm in arm assist bed to bathroom IADLs Needs Assist: shopping, housework, finances, food prep, telephone, transportation, medication admin. Employment History Employment: Retired ECHO Results (as available) Date of last Echo 12/12/14 EF% 65 Exam & Diagnostic Data Vital Signs and I&O Vital Signs Date Time Temp Pulse Resp B/P B/P Pulse O2 O2 Flow FiO2 Mean Ox Delivery Rate 10/19 1352 96.2 106 16 120/77 100 Nasal 4.0L Cannula 10/19 1152 97.8 121 18 136/69 100 Nasal 4.0L Cannula 10/19 1020 97.2 126 16 122/82 100 Nasal 4.0L Cannula 10/19 0932 133 159/74 10/19 0900 97 Nasal 4.0L Cannula 10/19 0859 98.2 133 16 159/74 96 Nasal 4.0L Cannula Intake & Output 10/19 1600 10/19 0800 10/19 0000 10/18 1600 10/18 0800 10/18 0000 Intake Total Output Total Balance Patient 89 lb 11.65 oz Weight Weight Bed scale Measurement Method Physical Exam: Elderly lethargic and nonverbal female. Vital signs: See above. HEENT: Normocephalic, atraumatic, dry mucous membranes. Neck: No JVD, no bruits. Lungs: clear to ausculation. Heart: S1, S2 (irregularly, irregular). Abdomen: Soft, nontender, positive bowel sounds. Extremities: 1+ edema. Labs/[place]ico Results: Laboratory Tests 10/19 10/19 1600 1115 Chemistry Troponin I (< 0.11 ng/ml) < 0.01 Urines Urine Color (YEL,AMB,STR) YEL Urine Clarity (CLEAR) CLEAR Urine pH (5.0 - 8.0) 7.0 Ur Specific [place] (1.001 - 1.035) 1.015 Urine Protein (NEG,<30 MG/DL) NEG Urine Ketones (NEG) NEG Urine Nitrite (NEG) NEG Urine Bilirubin (NEG) NEG Urine Urobilinogen (0.1 - 1.0 EU/dl) 2.0 H Ur Leukocyte Esterase (NEG) NEG Ur Microscopic SEDIMENT EXAMINED Urine RBC (0 - 5 /HPF) 10-15 H Urine WBC (0 - 2 /HPF) RARE Ur Epithelial Cells (NONE,FEW) MOD H Urine Bacteria (NEG/NONE) RARE H Urine Mucus (FEW,NONE) RARE Urine Hemoglobin (NEG) SMALL H Urine Glucose (N MG/DL) NEG 10/19 0903 Chemistry Sodium (137 - 145 mmol/L) 143 Potassium (3.5 - 5.1 mmol/L) 4.6 Chloride (98 - 107 mmol/L) 100 Carbon Dioxide (22 - 30 mmol/L) 36 H Anion Gap (5 - 16) 7 BUN (7 - 17 mg/dL) 34 H Creatinine (0.5 - 1.0 mg/dL) 0.7 Estimated GFR (>60 ml/min) > 60 BUN/Creatinine Ratio (7 - 25 %) 48.6 H Glucose (65 - 99 mg/dL) 91 Calcium (8.4 - 10.2 mg/dL) 8.4 Total Bilirubin (0.2 - 1.3 mg/dL) 0.7 AST (14 - 36 U/L) 23 ALT (9 - 52 U/L) 28 Alkaline Phosphatase (<127 U/L) 71 Troponin I (< 0.11 ng/ml) < 0.01 Total Protein (6.3 - 8.2 g/dL) 6.6 Albumin (3.5 - 5.0 g/dL) 3.6 Globulin (1.9 - 4.2 gm/dL) 3.0 Albumin/Globulin Ratio (1.1 - 2.2 %) 1.2 Hematology CBC w Diff MAN DIFF ORDERED WBC (4.8 - 10.8 /CUMM) 4.9 RBC (4.20 - 5.40 /CUMM) 3.91 L Hgb (12.0 - 16.0 G/DL) 12.4 Hct (37 - 47 %) 37.7 MCV (81.0 - 99.0 FL) 96.3 MCH (27.0 - 31.0 PG) 31.8 H RDW (11.5 - 14.5 %) 14.4 Plt Count (130 - 400 /CUMM) 118 L MPV (7.4 - 10.4 FL) 8.4 Gran % (42.2 - 75.2 %) 66.4 Lymphocytes % (20.5 - 51.1 %) 19.6 L Monocytes % (1.7 - 9.3 %) 11.0 H Eosinophils % (0 - 5 %) 2.5 Basophils % (0.0 - 2.0 %) 0.5 Absolute Granulocytes (1.4 - 6.5 /CUMM) 3.2 Absolute Lymphocytes (1.2 - 3.4 /CUMM) 1.0 L Absolute Monocytes (0.10 - 0.60 /CUMM) 0.5 Absolute Eosinophils (0.0 - 0.7 /CUMM) 0.1 Absolute Basophils (0.0 - 0.2 /CUMM) 0 Platelet Estimate (ADEQUATE) DECREASED Polychromasia 1+ Basophilic Stippling 1+ PUBS MCHC (33.0 - 37.0 G/DL) 33.0 Toxicology Valproic Acid (50 - 120 ug/mL) < 10.0 L Diagnostic Data EKG Results (10/19/2016): Atrial fibrillation with a rapid mean ventricular response, right axis deviation, nonspecific T-wave abnormalities in diffuse leads. Slightly slow rate since previous tracing (06/25/2015). Other Results Head CT (10/19/2016): No evidence for acute intracranial injury. Stable age-appropriate appearance of the brain. Left frontal meningioma. Echocardiogram (12/12/2014): Normal size left ventricle. Mild concentric left ventricular hypertrophy. No obvious regional wall motion abnormalities. Normal left ventricular ejection fraction visually estimated at >65%. ormal right ventricular size and function. Catheter/pacemaker wire in the right ventricular cavity. Mild to moderate right atrial dilatation. Catheter/pacemaker wire in the right atrial cavity. Normal left atrial size. Mild mitral regurgitation. Trace aortic regurgitation. Mild tricuspid regurgitation. Moderate pulmonary hypertension. [id number] pulmonic regurgitation. Assessment/Plan Assessment/Plan Acute left MCA territory ischemic stroke of uncertain onset time, likely cardioembolic in etiology given known history of atrial fibrillation without anticoagulation in this elderly female. Discussions between the ED attending (Siddhartha Quiroz M.D.), neurology (Kisha Lewis M.D.) and the patient's power of trial attorney culminated in a decision to defer TPA. Recommendations: * Telemetry admission with neuro checks. * Nothing by mouth until swallowing evaluation. * Gentle IV hydration. * Antiplatelet therapy with aspirin per rectum until swallowing evaluation performed. * Statin therapy when able to take by mouth. * Echocardiogram to assess left ventricular function and cardioembolic source for stroke. * Consider carotid ultrasound. * No MRI given non-MRI safe pacemaker. * Defer anticoagulation to avoid hemorrhagic transformation. * DVT prophylaxis. * Occupational, physical, speech therapy. Further recommendations to follow, Thank you. Consult Acknowledgment - Thank you for your consult request. - Thank you for your consult request.
[2016-10-19 19:02] VITALS: BP 120/60
[2016-10-19 23:57] VITALS: BP 100/68
--- NOTE | 2016-10-20 08:38 | PN- Neurology ---
Subjective Subjective: Opens eyes to voice Grasping her weak right hand with her left hand Review of Systems: Unobtainable due to a aphasia Objective Vital Signs and I&Os Vital Signs Date Time Temp Pulse Resp B/P B/P Pulse O2 O2 Flow FiO2 Mean Ox Delivery Rate 10/20 0000 Nasal 2.0L Cannula 10/19 2357 98.4 95 28 100/68 94 Nasal 2.5L Cannula 10/19 1912 139 120/60 10/19 1902 127 120/60 10/19 1800 95 Nasal 2.0L Cannula 10/19 1716 97.0 101 18 120/84 99 Nasal 3.0L Cannula 10/19 1352 96.2 106 16 120/77 100 Nasal 4.0L Cannula 10/19 1152 97.8 121 18 136/69 100 Nasal 4.0L Cannula 10/19 1020 97.2 126 16 122/82 100 Nasal 4.0L Cannula 10/19 0932 133 159/74 10/19 0900 97 Nasal 4.0L Cannula 10/19 0859 98.2 133 16 159/74 96 Nasal 4.0L Cannula Intake & Output 10/20 1600 10/20 0800 10/20 0000 10/19 1600 10/19 0800 10/19 0000 Intake Total 460 250 Output Total Balance 460 250 Intake, IV 460 250 Intake, Oral 0 0 Number 1 2 Bowel Movements Patient 84 lb 1.98 oz 89 lb 11.65 oz Weight Weight Bernie Lift Bed scale Measurement Method Physical Exam: More alert Opens eyes to voice Left gaze deviation resolved Global aphasia Right hemiplegia, flaccid Current Medications: Current Medications Sig/Gabriel Start time Last Medication Dose Route Stop Time Status Admin Acetaminophen 650 MG Q6P PRN 10/19 1400 AC PO Acetaminophen 600 MG Q6P PRN 10/19 1400 AC IV Aspirin 300 MG DAILY 10/20 1000 AC KY Aspirin 300 MG ONCE ONE 10/19 1115 DC 10/19 [place] 10/19 1116 1236 Atorvastatin Calcium 80 MG 1700 10/19 1700 AC PO Diltiazem HCl 125 MG Q24H 10/19 1930 AC 10/19 Sodium Chloride 100 ML IV 210 Diltiazem HCl 5 MG Q4 HRS NEEDED PRN 10/19 1630 DC 10/19 IV PUSH 1912 Diltiazem HCl 0 .STK-MED ONE 10/19 0931 DC .ROUTE Diltiazem HCl 10 MG ONCE ONE 10/19 0915 DC 10/19 IV PUSH 10/19 0916 0932 Heparin Sodium 0 .STK-MED ONE 10/19 1426 DC (Porcine) .ROUTE Heparin Sodium 5,000 UNIT Q8 10/19 1400 AC 10/20 (Porcine) SC 0523 Morphine Sulfate 2 MG Q4P PRN 10/19 1400 AC IV Sodium Chloride 1,000 ML Q20H 10/19 1400 AC 10/19 IV 1431 Valproate Sodium 125 MG DAILY PRN 10/19 1900 AC Sodium Chloride 100 ML IV Results Last 24 Hours of Lab Results: Laboratory Tests 10/20 10/19 10/19 0030 2100 1600 Chemistry Troponin I (< 0.11 ng/ml) < 0.01 Cancelled < 0.01 10/19 10/19 1115 0903 Chemistry Sodium (137 - 145 mmol/L) 143 Potassium (3.5 - 5.1 mmol/L) 4.6 Chloride (98 - 107 mmol/L) 100 Carbon Dioxide (22 - 30 mmol/L) 36 H Anion Gap (5 - 16) 7 BUN (7 - 17 mg/dL) 34 H Creatinine (0.5 - 1.0 mg/dL) 0.7 Estimated GFR (>60 ml/min) > 60 BUN/Creatinine Ratio (7 - 25 %) 48.6 H Glucose (65 - 99 mg/dL) 91 Calcium (8.4 - 10.2 mg/dL) 8.4 Total Bilirubin (0.2 - 1.3 mg/dL) 0.7 AST (14 - 36 U/L) 23 ALT (9 - 52 U/L) 28 Alkaline Phosphatase (<127 U/L) 71 Troponin I (< 0.11 ng/ml) < 0.01 Total Protein (6.3 - 8.2 g/dL) 6.6 Albumin (3.5 - 5.0 g/dL) 3.6 Globulin (1.9 - 4.2 gm/dL) 3.0 Albumin/Globulin Ratio (1.1 - 2.2 %) 1.2 Hematology CBC w Diff MAN DIFF ORDERED WBC (4.8 - 10.8 /CUMM) 4.9 RBC (4.20 - 5.40 /CUMM) 3.91 L Hgb (12.0 - 16.0 G/DL) 12.4 Hct (37 - 47 %) 37.7 MCV (81.0 - 99.0 FL) 96.3 MCH (27.0 - 31.0 PG) 31.8 H RDW (11.5 - 14.5 %) 14.4 Plt Count (130 - 400 /CUMM) 118 L MPV (7.4 - 10.4 FL) 8.4 Gran % (42.2 - 75.2 %) 66.4 Lymphocytes % (20.5 - 51.1 %) 19.6 L Monocytes % (1.7 - 9.3 %) 11.0 H Eosinophils % (0 - 5 %) 2.5 Basophils % (0.0 - 2.0 %) 0.5 Absolute Granulocytes (1.4 - 6.5 /CUMM) 3.2 Absolute Lymphocytes (1.2 - 3.4 /CUMM) 1.0 L Absolute Monocytes (0.10 - 0.60 /CUMM) 0.5 Absolute Eosinophils (0.0 - 0.7 /CUMM) 0.1 Absolute Basophils (0.0 - 0.2 /CUMM) 0 Platelet Estimate (ADEQUATE) DECREASED Polychromasia 1+ Basophilic Stippling 1+ PUBS MCHC (33.0 - 37.0 G/DL) 33.0 Toxicology Valproic Acid (50 - 120 ug/mL) < 10.0 L Urines Urine Color (YEL,AMB,STR) YEL Urine Clarity (CLEAR) CLEAR Urine pH (5.0 - 8.0) 7.0 Ur Specific [place] (1.001 - 1.035) 1.015 Urine Protein (NEG,<30 MG/DL) NEG Urine Ketones (NEG) NEG Urine Nitrite (NEG) NEG Urine Bilirubin (NEG) NEG Urine Urobilinogen (0.1 - 1.0 EU/dl) 2.0 H Ur Leukocyte Esterase (NEG) NEG Ur Microscopic SEDIMENT EXAMINED Urine RBC (0 - 5 /HPF) 10-15 H Urine WBC (0 - 2 /HPF) RARE Ur Epithelial Cells (NONE,FEW) MOD H Urine Bacteria (NEG/NONE) RARE H Urine Mucus (FEW,NONE) RARE Urine Hemoglobin (NEG) SMALL H Urine Glucose (N MG/DL) NEG Assessment/Plan Assessment: Presumably moderate sized acute left MCA territory ischemic stroke Did not receive TPA ultimately due to uncertain timing. History of atrial fibrillation, cardioembolic source suspected Plan: Repeat head CT Fasting lipid profile Nothing by mouth pending swallow evaluation Hydrate with isotonic IV fluids in the meantime DVT prophylaxis with subcutaneous heparin or Lovenox Aspirin per rectum daily until able to take by mouth Statin when able to take by mouth PT, OT, ST, swallow evaluation
[2016-10-20 08:47] VITALS: BP 112/60
--- NOTE | 2016-10-20 10:01 | PN- Housestaff ---
Subjective Follow-up For: Left MCA ischemic stroke Complaints: no complaints Tele-Events Since Last Visit: Atrial fibrillation, no overnight cardiac events Subjective: She was seen and examined this morning. She was lying comfortably on bed and trying to open her eyes on calling her name but not obeyingt any commands. Her heart rate is under reasonable range on Cardizem drip at 7.5. Formal swallow evaluation is still pending. Patient is somnolent and bedside swallow is not possible. Review of Systems Constitutional: Denies: chills, diaphoresis, fever. Cardiovascular: Denies: chest pain, edema. Respiratory: Denies: cough, hemoptysis. Gastrointestinal: Denies: constipation, diarrhea. Neurological/Psychological: Reports: unable to move lower ext, unable to move upper ext. Objective Last 24 Hrs of Vital Signs/I&O Vital Signs Date Time Temp Pulse Resp B/P B/P Pulse O2 O2 Flow FiO2 Mean Ox Delivery Rate 10/20 0847 98.1 77 22 112/60 90 Nasal 2.5L Cannula 10/20 0800 94 Nasal 2.0L Cannula 10/20 0000 Nasal 2.0L Cannula 10/19 2357 98.4 95 28 100/68 94 Nasal 2.5L Cannula 10/19 1912 139 120/60 10/19 1902 127 120/60 10/19 1800 95 Nasal 2.0L Cannula 10/19 1716 97.0 101 18 120/84 99 Nasal 3.0L Cannula 10/19 1352 96.2 106 16 120/77 100 Nasal 4.0L Cannula Intake & Output 10/20 1600 10/20 0800 10/20 0000 Intake Total 460 250 Output Total Balance 460 250 Intake, IV 460 250 Intake, Oral 0 0 Number 1 2 Bowel Movements Patient 84 lb 1.98 oz Weight Weight Bernie Lift Measurement Method Physical Exam General Appearance: somnolent and not abeying commands Cardiovascular: irregularly irregular Lungs: Normal Air Movement Neurological: aphasia Extremities: No Clubbing, No Cyanosis Current Medications: Current Medications Sig/Gabriel Start time Last Medication Dose Route Stop Time Status Admin Acetaminophen 650 MG Q6P PRN 10/19 1400 AC PO Acetaminophen 600 MG Q6P PRN 10/19 1400 AC IV Aspirin 300 MG DAILY 10/20 1000 AC [place] Atorvastatin Calcium 80 MG 1700 10/19 1700 AC PO Dextrose/Sodium 1,000 ML Q20H 10/20 0945 AC 10/20 Chloride IV 1050 Diltiazem HCl 125 MG Q24H 10/19 1930 AC 10/19 Sodium Chloride 100 ML IV 2102 Diltiazem HCl 5 MG Q4 HRS NEEDED PRN 10/19 1630 DC 10/19 IV PUSH 1912 Heparin Sodium 0 .STK-MED ONE 10/19 1426 DC (Porcine) .ROUTE Heparin Sodium 5,000 UNIT Q8 10/19 1400 AC 10/20 (Porcine) SC 0523 Morphine Sulfate 2 MG Q4P PRN 10/19 1400 AC IV Sodium Chloride 1,000 ML Q20H 10/19 1400 DC 10/19 IV 1431 Valproate Sodium 125 MG DAILY PRN 10/19 1900 AC Sodium Chloride 100 ML IV Last 24 Hrs of Lab/Fransico Results Last 24 Hrs of Labs/Mics: Laboratory Tests 10/20/16 0030: Troponin I < 0.01 10/19/16 2100: Troponin I Cancelled 10/19/16 1600: Troponin I < 0.01 Assessment/Plan Assessment: 84-year-old woman with past medical history of dementia, COPD not on home oxygen according to the sister, dementia, interstitial lung disease, hyperlipidemia, hypertension, atrial fibrillation not on anticoagulation, tachycardia bradycardia syndrome s/p permanent pacemaker (non-MRI compliant) implantation, noncompliant with her follow-ups, who presents to the ED from the halfway right-sided weakness, altered mental status, left-sided gaze, found to have evidence of acute left MCA territory ischemic stroke, admitted to telemetry for further management and evaluation. Vitals on admission showed temperature 98.2, pulse rate of 133, respiratory rate of 16, blood pressure 159/74 oxygen saturation 96% on 4 L of nasal cannula First troponin has been negative with no significant ST-T wave EKG change except for A. fib Assessment and plan: 1. Left MCA ischemic stroke: - * Patient was assessed by neurology and we will repeat CAT scan today * We will send lipid profile and patient will start on statins as she passed swallow well to take by mouth * PT/OT evaluation in a.m. along with formal swallow evaluation 2. History of A. fib: The patient was found to be in rapid A. fib, with heart rate 150s, received 1 IV push Cardizem 10 mg - The patient has not been on any anticoagulation for a while and was stopped, as is unknown - She has not been compliant with her follow-ups with Dr. Rice either - As the patient is nothing by mouth awaiting official swallow eval, will hold off on by mouth Cardizem and currently her heart rate is controlled on 7.5 IV Cardizem drip 3. History of dementia/mood disorder/agitation: The patient is apparently on low-dose of Depakote for mood disorder/agitation as per her sister, and not for a seizure disorder - We will continue Depakote 4. History of diastolic CHF: - Currently the patient does not seem to be in florid CHF in fact is dehydrated, and altered - Because we are keeping him nothing by mouth, will hold Lasix - We will provide gentle hydration 4. As patient is nothing by mouth will hold off on mirtazapine, trazodone, ergocalciferol, fibri and melatonin 5. Nothing by mouth 6. Subcutaneous heparin for DVT prophylaxis 7. CODE STATUS: patient is DNI/DNR however while having a conversation with the patient's sister /who is also power of claims examiner she was very hesitant in making the patient DNR. She does not want the patient to be intubated as the patient would not want that either but she wants "something" done in case of an emergency or if she goes into cardiac arrest. Had a very long discussion with the patient's sister explaining her the pros and cons of CPR especially in an old frail lady was a small habitus, osteoporotic/brittle bones and increased AP diameter. She finally decided to give Coleen at least 24 hours and see how she responds to conservative/medical treatment before she makes a decision to change her to a complete DNI DNR. Problem List: 1. ATRIAL FIBRILATION 2. CVA (cerebral vascular accident) Pain Ratin Pain Location: not aplicable Pain Goal: Remain pain free Pain Plan: tylenol Tomorrow's Labs & Rationales: cbc and bep Consulting Request: Consulting Specialty: Neurology Consulting Physician: Dr. Lewis Reason for Consult: STROKE
--- NOTE | 2016-10-20 11:22 | PN- Att Addend ---
Attending Addendum Attending Brief Note Mrs. Davison was visited and examined in the presence of her sister. She is somewhat more alert today as she opens her eyes to voice but does not follow commands. She is on contact precautions. She is now receiving D5 half-normal saline and a diltiazem infusion for rate control. She is afebrile. Heart rate is elevated at up to 130. Blood pressure and oxygen saturation are satisfactory. She appears to be in no acute distress. Her lungs are clear anteriorly. Her heart rate is mildly tachycardic and irregularly irregular. Her abdomen is benign. Neurologic exam is notable for right field cut and dense right flaccid hemiparesis. CBC and laboratory determinations are satisfactory. We await swallowing evaluation, OT, and PT input. We will control her heart rate with intravenous diltiazem. We will follow her serum glucose with every shift Accu-Cheks. We will continue her aspirin per rectum and her Depakote intravenously. We will initiate her statin once the patient is clear to take by mouth. I agree with a follow-up CT to determine the extent of her infarct.
--- NOTE | 2016-10-20 11:47 | ULTRASOUND REPORT ---
EXAMINATION: DUPLEX BILATERAL CAROTID ULTRASOUND CLINICAL INFORMATION: Right-sided weakness. COMPARISON: Carotid duplex dated 03/26/2010. TECHNIQUE: Real-time ultrasound and Doppler techniques (integrating B-mode 2D vascular images, Doppler spectral analysis and color flow Doppler imaging) were utilized to interrogate the extracranial carotid and vertebral arteries bilaterally. FINDINGS: Right side: 1. There is mild hyperechoic plaque in the ECA/ICA region. 2. The common carotid artery velocity is 62 cm/s. 3. The proximal internal carotid artery velocities are 65 cm/s systolic and 10 cm/s diastolic. 4. The external carotid artery velocity is 159 cm/s. Left side: 1. There is mild hyperechoic plaque in the ECA/ICA region. 2. The common carotid artery velocity is 77 cm/s. 3. The proximal internal carotid artery velocities are 39 cm/s systolic and 7 cm/s diastolic. 4. The external carotid artery velocity is 94 cm/s. ADDITIONAL FINDINGS: 1. The vertebral arteries show antegrade flow. 2. The brachial artery pressures are symmetric. IMPRESSION: 1. RIGHT: Minimal, nonhemodynamically significant stenosis of the proximal right internal carotid artery corresponding to a 0-49% stenosis by velocity criteria. 2. LEFT: Minimal, nonhemodynamically significant stenosis of the proximal left internal carotid artery corresponding to a 0-49% stenosis by velocity criteria. 3. Antegrade flow is seen via the bilateral vertebral arteries.
--- NOTE | 2016-10-20 13:44 | CT SCAN REPORT ---
EXAMINATION: CT HEAD WITHOUT CONTRAST CLINICAL INFORMATION: Stroke with right-sided weakness. COMPARISON: Prior head CT examinations, most recently 10/19/2016. TECHNIQUE: Contiguous axial imaging was performed from the skull base to vertex without intravenous administration of contrast. DLP: 613.36 mGy-cm FINDINGS: There is low attenuation change within the left serrano radiata, caudate head, putamen and external capsule, consistent with evolving infarction. This is a new CT finding and is likely acute or subacute. There is no hemorrhagic transformation. There is local mass effect, with mild attenuation of the left lateral ventricle. No midline shift is seen. The quadrigeminal plate cisterns remain patent. No extra-axial fluid collections are identified. The right lateral ventricle is normal in size. There is a stable calcified left frontal meningioma, without significant mass effect. The osseous structures and soft tissues are normal. The mastoid air cells and visualized portions of the paranasal sinuses are well-aerated. IMPRESSION: There is an evolving, acute to subacute infarction involving the left coronal radiata, caudate nucleus, putamen and external capsule. No hemorrhagic transformation is seen. There is mild local mass effect, without midline shift. The quadrigeminal plate cisterns remain patent. A preliminary report was provided by the casting house laborer on 10/20/2016.
[2016-10-20 15:00] VITALS: BP 118/68
--- NOTE | 2016-10-20 16:10 | PN- Cardiology ---
Subjective Subjective: More alert, however, not moving right side still. Objective Vital Signs and I&Os Vital Signs Date Time Temp Pulse Resp B/P B/P Pulse O2 O2 Flow FiO2 Mean Ox Delivery Rate 10/20 0847 98.1 77 22 112/60 90 Nasal 2.5L Cannula 10/20 0800 94 Nasal 2.0L Cannula 10/20 0000 Nasal 2.0L Cannula 10/19 2357 98.4 95 28 100/68 94 Nasal 2.5L Cannula 10/19 1912 139 120/60 10/19 1902 127 120/60 10/19 1800 95 Nasal 2.0L Cannula 10/19 1716 97.0 101 18 120/84 99 Nasal 3.0L Cannula Intake & Output 10/20 1600 10/20 0800 10/20 0000 10/19 1600 10/19 0810/19 0000 Intake Total 450 460 250 Output Total Balance 450 460 250 Intake, IV 450 460 250 Intake, Oral 0 0 0 Number 1 2 Bowel Movements Patient 84 lb 1.98 oz 89 lb 11.65 oz Weight Weight Bernie Lift Bed scale Measurement Method Current Medications: Current Medications Sig/Gabriel Start time Last Medication Dose Route Stop Time Status Admin Acetaminophen 650 MG Q6P PRN 10/19 1400 AC PO Acetaminophen 600 MG Q6P PRN 10/19 1400 AC IV Aspirin 300 MG DAILY 10/20 1000 AC 10/20 MS 1327 Atorvastatin Calcium 80 MG 1700 10/19 1700 AC PO Dextrose/Sodium 1,000 ML Q20H 10/20 0945 AC 10/20 Chloride IV 1050 Diltiazem HCl 125 MG Q24H 10/19 1930 AC 10/19 Sodium Chloride 100 ML IV 2102 Diltiazem HCl 5 MG Q4 HRS NEEDED PRN 10/19 1630 DC 10/19 IV PUSH 1912 Heparin Sodium 5,000 UNIT Q8 10/19 1400 AC 10/20 (Porcine) SC 1327 Morphine Sulfate 2 MG Q4P PRN 10/19 1400 AC IV Sodium Chloride 1,000 ML Q20H 10/19 1400 DC 10/19 IV 1431 Valproate Sodium 125 MG DAILY PRN 10/19 1900 AC Sodium Chloride 100 ML IV Results Last 48 Hrs of Labs/Mics: Laboratory Tests 10/20/16 0030: Troponin I < 0.01 10/19/16 2100: Troponin I Cancelled 05/20/17 1600: Troponin I < 0.01 10/19/16 1115: Urine Color YEL, Urine Clarity CLEAR, Urine pH 7.0, Ur Specific Cisco 1.015, Urine Protein NEG, Urine Ketones NEG, Urine Nitrite NEG, Urine Bilirubin NEG, Urine Urobilinogen 2.0 H, Ur Leukocyte Esterase NEG, Ur Microscopic SEDIMENT EXAMINED, Urine RBC 10-15 H, Urine WBC RARE, Ur Epithelial Cells MOD H, Urine Bacteria RARE H, Urine Mucus RARE, Urine Hemoglobin SMALL H, Urine Glucose NEG 10/19/16 0903: Anion Gap 7, Estimated GFR > 60, BUN/Creatinine Ratio 48.6 H, Glucose 91, Calcium 8.4, Total Bilirubin 0.7, AST 23, ALT 28, Alkaline Phosphatase 71, Troponin I < 0.01, Total Protein 6.6, Albumin 3.6, Globulin 3.0, Albumin/ Globulin Ratio 1.2, CBC w Diff MAN DIFF ORDERED, RBC 3.91 L, MCV 96.3, MCH 31.8 H, RDW 14.4, MPV 8.4, Gran % 66.4, Lymphocytes % 19.6 L, Monocytes % 11.0 H, Eosinophils % 2.5, Basophils % 0.5, Absolute Granulocytes 3.2, Absolute Lymphocytes 1.0 L, Absolute Monocytes 0.5, Absolute Eosinophils 0.1, Absolute Basophils 0, Platelet Estimate DECREASED, Polychromasia 1+, Basophilic Stippling 1+, PUBS MCHC 33.0, Valproic Acid < 10.0 L Recent Imaging Studies: Carotid ultrasound (10/20/2016): 1. RIGHT: Minimal, nonhemodynamically significant stenosis of the proximal right internal carotid artery corresponding to a 0-49% stenosis by velocity criteria. 2. LEFT: Minimal, nonhemodynamically significant stenosis of the proximal left internal carotid artery corresponding to a 0-49% stenosis by velocity criteria. 3. Antegrade flow is seen via the bilateral vertebral arteries. Head CT (10/20/2016): There is an evolving, acute to subacute infarction involving the left coronal radiata, caudate nucleus, putamen and external capsule. No hemorrhagic transformation is seen. There is mild local mass effect, without midline shift. The quadrigeminal plate cisterns remain patent. Assessment/Plan Assessment/Plan Acute left MCA territory ischemic stroke of uncertain onset time, likely cardioembolic in etiology given known history of atrial fibrillation without anticoagulation in this elderly female. Discussions between the ED attending (Siddhartha Quiroz M.D.), neurology (Kisha Lewis M.D.) and the patient's power of senior attorney culminated in a decision to defer TPA. Recommendations: * Continue on telemetry. * Nothing by mouth until swallowing evaluation. * Continue gentle IV hydration. * Antiplatelet therapy with aspirin per rectum until swallowing evaluation performed. * Statin therapy when able to take by mouth. * DVT prophylaxis. * Occupational, physical, speech therapy. Continue telemetry? Yes
[2016-10-20 23:52] VITALS: BP 108/68
--- NOTE | 2016-10-21 07:06 | PN- Housestaff ---
Subjective Follow-up For: stroke Tele-Events Since Last Visit: Ji mcqueen with heart rate of 97-110 with intermittent episodes of PVCs Subjective: Seen and examined at bedside. Appears somnolent however his awoken to verbal stimuli. Patient is currently nonverbal. No acute overnight event reported by nursing staff Review of Systems Constitutional: Reports: no symptoms. Objective Last 24 Hrs of Vital Signs/I&O Vital Signs Date Time Temp Pulse Resp B/P B/P Pulse O2 O2 Flow FiO2 Mean Ox Delivery Rate 10/21 1053 98.1 98 18 132/00 97 Nasal 2.0L Cannula 10/21 0800 95 Nasal 2.0L Cannula 10/21 0000 92 Nasal 2.0L Cannula 10/20 2352 97.6 79 18 108/68 92 Nasal 2.5L Cannula 10/20 1600 Nasal 2.0L Cannula 10/20 1500 98.2 117 16 118/68 93 Nasal 2.5L Cannula Intake & Output 10/21 1600 10/21 0800 10/21 0000 Intake Total 460 510 Output Total Balance 460 510 Intake, IV 460 460 Intake, Oral 50 Number 1 Bowel Movements Patient 38.158 kg Weight Physical Exam General Appearance: awoken by verbal commands but not able to follow furthr commands. Cardiovascular: Normal S1, Normal S2, irregular rate Lungs: Normal Air Movement Abdomen: Normal Bowel Sounds, Soft Neurological: somnolent,non verbal, but does open eyes, not able to follow commands. 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 Vitals on admission showed temperature 98.2, pulse rate of 133, respiratory rate of 16, blood pressure 159/74 oxygen saturation 96% on 4 L of nasal cannula First troponin has been negative with no significant ST-T wave EKG change except for Michelle. charisse Assessment and plan: 1. Left MCA ischemic stroke: >72 HR S/P subcortical stroke, MCA, Did not receive tPA due to uncertainty of onset.. On ASA rectally,awaiting swallow eval to start statin. For now will continue npo with dextrose IV. Plannng to discuss cial of care with sister today. - 2. History of A. fib: The patient was found to be in rapid A. fib, rate controlled by Cardizem drip currently at 7.5 - The patient has not been on any anticoagulation for a while and was stopped, as is unknown - She has not been compliant with her follow-ups with Dr. Rice either - As the patient is nothing by mouth awaiting official swallow eval, will hold off on by mouth Cardizem and currently her heart rate is controlled on 7.5 IV Cardizem drip 3. History of dementia/mood disorder/agitation: The patient is apparently on low-dose of Depakote for mood disorder/agitation as per her sister, and not for a seizure disorder - We will continue Depakote 4. History of diastolic CHF: - Currently the patient does not seem to be in florid CHF in fact is dehydrated, and altered - Because we are keeping him nothing by mouth, will hold Lasix - We will provide gentle hydration 4. As patient is nothing by mouth will hold off on mirtazapine, trazodone, ergocalciferol, fibri and melatonin 5. Nothing by mouth 6. Subcutaneous heparin for DVT prophylaxis 7. CODE STATUS: Will remian DNI for now, had a nother discussion with patient sister who requested 24 hours before she consider any changes in gols of care or code status. Problem List: 1. Atrial fibrillation with rapid ventricular response 2. CVA (cerebral vascular accident) Pain Ratin Pain Location: Not able to discern Pain Goal: Remain pain free Pain Plan: Per pain pathway Tomorrow's Labs & Rationales: CBC BEP- Consulting Request: Consulting Specialty: Neurology Consulting Physician: Dr. Lewis Reason for Consult: STROKE Consulting Request: Consulting Specialty: Neurology Consulting Physician: Dr. Lewis Reason for Consult: STROKE
[2016-10-21 08:25] LABS: ABSOLUTE BASOPHIL COUNT 0 /CUMM (0.0-0.2); ABSOLUTE EOSINOPHIL COUNT 0.1 /CUMM (0.0-0.7); ABSOLUTE GRANULOCYTE CT 4.6 /CUMM (1.4-6.5); ABSOLUTE LYMPH COUNT 0.8 /CUMM (1.2-3.4); ABSOLUTE MONOCYTE COUNT 0.6 /CUMM (0.10-0.60); HEMATOCRIT 40.1 % (37-47); MEAN CORPUSCULAR HGB 31.6 PG (27.0-31.0); MEAN CORPUSCULAR HGB CONC 32.5 G/DL (33.0-37.0); MEAN CORPUSCULAR VOLUME 97.1 FL (81.0-99.0); MEAN PLATELET VOLUME 8.8 FL (7.4-10.4); PLATELET COUNT 131 /CUMM (130-400); RBC DISTRIBUTION WIDTH 14.5 % (11.5-14.5); RED BLOOD CELL CT 4.13 /CUMM (4.20-5.40)
--- NOTE | 2016-10-21 08:26 | ECHOCARDIOGRAM REPORT ---
ZULEMA SORTO Age: 86 : 1930 Gender: F Exam Date: 10/20/2016 09:47 Exam Location: [facility] Ht (in): 60 Wt (lb): 84 BSA: 1.26 BP: 100 / 68 Ordering Physician: JENNIFER DURBIN MD Referring Physician: Gerald Rice MD, PhD Technologist: Vilma Keene [facility] Room Number: 175 Indications: AFIB/FLUTTER Rhythm: Atrial fibrillation Technical Quality: technically limited FINDINGS Left Ventricle Normal left ventricular size, wall thickness and systolic function with no obvious regional wall motion abnormalities. The ejection fraction is visually estimated at 60%. Right Ventricle The right ventricle is normal in size and function. Right Atrium The right atrium is severely enlarged. Left Atrium The left atrium is normal in size. The interatrial septum is intact. Mitral Valve The mitral valve demonstrates mild thickening with mitral annular calcification and normal function. There is mild mitral regurgitation. Aortic Valve Structurally normal aortic valve without significant sclerosis or stenosis. There is no aortic regurgitation. Tricuspid Valve The tricuspid valve is normal in structure and function. There is moderate to severe tricuspid regurgitation. Pulmonary artery systolic pressure is severely elevated to 80mmHg. Pulmonic Valve Structurally normal pulmonic valve. There is mild pulmonic regurgitation. Pericardium Normal pericardium without effusion. No pleural effusion. Great Vessels Normal aortic root dimension. The aortic arch and great vessels are well seen and are normal. CONCLUSIONS 1. Normal EF of 60%. 2. Severe right atrial enlargement. 3. Mild mitral regurgitation. 4. Moderate to severe tricuspid regugitation. 5. Mild pulmonic regurgitation. 7. Severe pulmonary hypertension. Gerald Rice M.D. (Electronically Signed) Final Date: 21 Oct 2016 08:25 MEASUREMENTS (Male / Female) Normal Values 2D ECHO LV Diastolic Diameter PLAX 3.8 cm 4.2 - 5.9 / 3.9 - 5.3 cm LV Systolic Diameter PLAX 2.0 cm 2.1 - 4.0 cm LV Fractional Shortening PLAX 47.4 % 25 - 46 % LV Ejection Fraction 2D Teich 79.5 % IVS Diastolic Thickness 0.8 cm LVPW Diastolic Thickness 0.9 cm LV Relative Wall Thickness 0.4 RV Internal Dim ED PLAX 2.9 cm 1.9 - 3.8 cm LVOT Diameter 1.8 cm Aortic Root Diameter 2.4 cm LA Systolic Diameter LX 3.8 cm 3.0 - 4.0 / 2.7 - 3.8 cm LA Volume 42.0 cm 18 - 58 / 22 - 52 cm Ascending Aorta Diameter 2.9 cm DOPPLER AV Peak Velocity 112.0 cm/s AV Peak Gradient 5.0 mmHg AV Mean Velocity 78.3 cm/s AV Mean Gradient 3.0 mmHg AV Velocity Time Integral 23.9 cm LVOT Peak Velocity 59.4 cm/s LVOT Peak Gradient 1.4 mmHg LVOT Mean Velocity 41.8 cm/s LVOT Mean Gradient 1.0 mmHg LVOT Velocity Time Integral 10.8 cm LVOT Stroke Volume 27.5 cm AV Area Cont Eq vti 1.1 cm AV Area Cont Eq pk 1.3 cm MV Peak Velocity 115.0 cm/s MV Peak Gradient 5.3 mmHg MV Mean Velocity 63.9 cm/s MV Mean Gradient 2.0 mmHg Mitral E Point Velocity 99.2 cm/s MV PHT Velocity 122.0 cm/s MV Deceleration Bracken 582.0 cm/s MV Pressure Half Time 62.9 ms MV Area PHT 3.5 cm MV Deceleration Time 197.0 ms TR Peak Velocity 434.0 cm/s TR Peak Gradient 75.3 mmHg Right Atrial Pressure 5.0 mmHg Pulmonary Artery Systolic Pressu 80.3 mmHg Right Ventricular Systolic Press 80.3 mmHg PV Peak Velocity 92.2 cm/s PV Peak Gradient 3.4 mmHg PV Mean Velocity 61.6 cm/s PV Mean Gradient 2.0 mmHg PV Velocity Time Integral 16.3 cm LV E' Lateral Velocity 12.7 cm/s Mitral E to LV E' Lateral Ratio 7.8 LV E' Septal Velocity 3.7 cm/s Mitral E to LV E' Septal Ratio 26.8
[2016-10-21 08:56] LABS: BASOPHIL % 0.4 % (0.0-2.0); EOSINOPHIL % 0.9 % (0-5); GRANULOCYTE % 76.2 % (42.2-75.2)
--- NOTE | 2016-10-21 09:33 | PN- Neurology ---
Subjective Subjective: She is now about 48 hours status post left MCA territory ischemic stroke Review of Systems: Unobtainable Objective Vital Signs and I&Os Vital Signs Date Time Temp Pulse Resp B/P B/P Pulse O2 O2 Flow FiO2 Mean Ox Delivery Rate 10/21 0000 92 Nasal 2.0L Cannula 10/20 2352 97.6 79 18 108/68 92 Nasal 2.5L Cannula 10/20 1600 Nasal 2.0L Cannula 10/20 1500 98.2 117 16 118/68 93 Nasal 2.5L Cannula Intake & Output 10/21 1600 10/21 0800 10/21 0000 10/20 1600 10/20 0800 10/20 0000 Intake Total 460 510 450 460 250 Output Total Balance 460 510 450 460 250 Intake, IV 460 460 450 460 250 Intake, Oral 50 0 0 0 Number 1 1 2 Bowel Movements Patient 84 lb 1.98 oz Weight Weight Bernie Lift Measurement Method Physical Exam: More alert Attempting to speak, but articulation is unintelligible Does not name objects or read words when they are placed in front of her Regards examiner, but does not follow verbal or gestural commands Right-sided strength has improved to approximately 2+ out of 5 Current Medications: Current Medications Sig/Gabriel Start time Last Medication Dose Route Stop Time Status Admin Acetaminophen 650 MG Q6P PRN 10/19 1400 AC PO Acetaminophen 600 MG Q6P PRN 10/19 1400 AC IV Aspirin 300 MG DAILY 10/20 1000 AC 10/21 NV 0950 Atorvastatin Calcium 80 MG 1700 10/19 1700 AC PO Dextrose/Sodium 1,000 ML Q20H 10/20 0945 AC 10/20 Chloride IV 2253 Diltiazem HCl 25 MG .STK-MED ONE 10/20 1103 DC IV 10/20 1104 Diltiazem HCl 125 MG Q24H 10/19 1930 AC 10/21 Sodium Chloride 100 ML IV 0158 Heparin Sodium 5,000 UNIT Q8 10/19 1400 AC 10/21 (Porcine) SC 0503 Morphine Sulfate 2 MG Q4P PRN 10/19 1400 AC IV Valproate Sodium 125 MG DAILY PRN 10/19 1900 AC Sodium Chloride 100 ML IV Results Last 24 Hours of Lab Results: Laboratory Tests 10/21 0704 Chemistry Sodium (137 - 145 mmol/L) 147 H Potassium (3.5 - 5.1 mmol/L) 4.2 Chloride (98 - 107 mmol/L) 101 Carbon Dioxide (22 - 30 mmol/L) 34 H Anion Gap (5 - 16) 12 BUN (7 - 17 mg/dL) 17 Creatinine (0.5 - 1.0 mg/dL) 0.6 Estimated GFR (>60 ml/min) > 60 BUN/Creatinine Ratio (7 - 25 %) 28.3 H Triglycerides (<150 mg/dL) 91 Cholesterol (<200 MG/DL) 207 H LDL Cholesterol, Calc (65 - 129 mg/dL) 137 H HDL Cholesterol (40 - 60 mg/dL) 52 Cholesterol/HDL Ratio (0.00 - 4.23 %) 4 Hematology CBC w Diff NO MAN DIFF REQ WBC (4.8 - 10.8 /CUMM) 6.0 RBC (4.20 - 5.40 /CUMM) 4.13 L Hgb (12.0 - 16.0 G/DL) 13.0 Hct (37 - 47 %) 40.1 MCV (81.0 - 99.0 FL) 97.1 MCH (27.0 - 31.0 PG) 31.6 H RDW (11.5 - 14.5 %) 14.5 Plt Count (130 - 400 /CUMM) 131 MPV (7.4 - 10.4 FL) 8.8 Gran % (42.2 - 75.2 %) 76.2 H Lymphocytes % (20.5 - 51.1 %) 12.6 L Monocytes % (1.7 - 9.3 %) 9.9 H Eosinophils % (0 - 5 %) 0.9 Basophils % (0.0 - 2.0 %) 0.4 Absolute Granulocytes (1.4 - 6.5 /CUMM) 4.6 Absolute Lymphocytes (1.2 - 3.4 /CUMM) 0.8 L Absolute Monocytes (0.10 - 0.60 /CUMM) 0.6 Absolute Eosinophils (0.0 - 0.7 /CUMM) 0.1 Absolute Basophils (0.0 - 0.2 /CUMM) 0 PUBS MCHC (33.0 - 37.0 G/DL) 32.5 L Recent Imaging Studies: Rpt head CT 10-20-16: IMPRESSION: There is an evolving, acute to subacute infarction involving the left serrano radiata, caudate nucleus, putamen and external capsule. No hemorrhagic transformation is seen. There is mild local mass effect, without midline shift. The quadrigeminal plate cisterns remain patent. Carotid ultrasound: MPRESSION: 1. RIGHT: Minimal, nonhemodynamically significant stenosis of the proximal right internal carotid artery corresponding to a 0-49% stenosis by velocity criteria. 2. LEFT: Minimal, nonhemodynamically significant stenosis of the proximal left internal carotid artery corresponding to a 0-49% stenosis by velocity criteria. 3. Antegrade flow is seen via the bilateral vertebral arteries. DICTATED BY: JOCELYNE DEVRIES,KARINE Rothman DATE/TIME DICTATED:10/20/161141 Assessment/Plan Assessment: Left MCA territory, predominantly subcortically- involved, ischemic stroke Clinical improvement noted Plan: Statin Okay to initiate chronic anticoagulation for cardioembolic prophylaxis in about one week PT, OT, ST, swallow evaluation STR Office follow-up Please reconsult us if we can be of further assist while she is still hospitalized
--- NOTE | 2016-10-21 09:40 | PN- Att Addend ---
Attending Addendum Attending Brief Note Patient is awake but not oriented. General Appearance: Not oriented Cardiovascular: irregular rhythm Lungs: Clear to Auscultation, Normal Air Movement Abdomen: Normal Bowel Sounds, Soft, No Tenderness Neurological: Right-sided weakness Extremities: No Clubbing, No Cyanosis, No Edema Assessment CVA likely embolic in the setting of atrial fibrillation with dense hemiplegia. Currently on full dose aspirin for anticoagulation per cardiology. Not a candidate for full anticoagulation secondary to advanced age and fall risk. Carotid ultrasounds and echocardiogram within normal limits. Plan for swallow evaluation today. Plan Swallow evaluation Continue full dose aspirin A. fib management per cardiology Gentle hydration Continue other current medications PT and OT evaluation DVT prophylaxis Current Medications Sig/Gabriel Start time Last Medication Dose Route Stop Time Status Admin Acetaminophen 650 MG Q6P PRN 10/19 1400 AC PO Acetaminophen 600 MG Q6P PRN 10/19 1400 AC IV Aspirin 300 MG DAILY 10/20 1000 AC 10/20 MS 1327 Atorvastatin Calcium 80 MG 1700 10/19 1700 AC PO Dextrose/Sodium 1,000 ML Q20H 10/20 0945 AC 10/20 Chloride IV 2253 Diltiazem HCl 25 MG .STK-MED ONE 10/20 1103 DC IV 10/20 1104 Diltiazem HCl 125 MG Q24H 10/19 1930 AC 10/21 Sodium Chloride 100 ML IV 0158 Heparin Sodium 5,000 UNIT Q8 10/19 1400 AC 10/21 (Porcine) SC 0503 Morphine Sulfate 2 MG Q4P PRN 10/19 1400 AC IV Valproate Sodium 125 MG DAILY PRN 10/19 1900 AC Sodium Chloride 100 ML IV Laboratory Tests 10/21 0704 Chemistry Sodium (137 - 145 mmol/L) 147 H Potassium (3.5 - 5.1 mmol/L) 4.2 Chloride (98 - 107 mmol/L) 101 Carbon Dioxide (22 - 30 mmol/L) 34 H Anion Gap (5 - 16) 12 BUN (7 - 17 mg/dL) 17 Creatinine (0.5 - 1.0 mg/dL) 0.6 Estimated GFR (>60 ml/min) > 60 BUN/Creatinine Ratio (7 - 25 %) 28.3 H Triglycerides (<150 mg/dL) 91 Cholesterol (<200 MG/DL) 207 H LDL Cholesterol, Calc (65 - 129 mg/dL) 137 H HDL Cholesterol (40 - 60 mg/dL) 52 Cholesterol/HDL Ratio (0.00 - 4.23 %) 4 Hematology CBC w Diff NO MAN DIFF REQ WBC (4.8 - 10.8 /CUMM) 6.0 RBC (4.20 - 5.40 /CUMM) 4.13 L Hgb (12.0 - 16.0 G/DL) 13.0 Hct (37 - 47 %) 40.1 MCV (81.0 - 99.0 FL) 97.1 MCH (27.0 - 31.0 PG) 31.6 H RDW (11.5 - 14.5 %) 14.5 Plt Count (130 - 400 /CUMM) 131 MPV (7.4 - 10.4 FL) 8.8 Gran % (42.2 - 75.2 %) 76.2 H Lymphocytes % (20.5 - 51.1 %) 12.6 L Monocytes % (1.7 - 9.3 %) 9.9 H Eosinophils % (0 - 5 %) 0.9 Basophils % (0.0 - 2.0 %) 0.4 Absolute Granulocytes (1.4 - 6.5 /CUMM) 4.6 Absolute Lymphocytes (1.2 - 3.4 /CUMM) 0.8 L Absolute Monocytes (0.10 - 0.60 /CUMM) 0.6 Absolute Eosinophils (0.0 - 0.7 /CUMM) 0.1 Absolute Basophils (0.0 - 0.2 /CUMM) 0 PUBS MCHC (33.0 - 37.0 G/DL) 32.5 L Vital Signs Date Time Temp Pulse Resp B/P B/P Pulse O2 O2 Flow FiO2 Mean Ox Delivery Rate 10/21 0000 92 Nasal 2.0L Cannula 10/20 2352 97.6 79 18 108/68 92 Nasal 2.5L Cannula 10/20 1600 Nasal 2.0L Cannula 10/20 1500 98.2 117 16 118/68 93 Nasal 2.5L Cannula
[2016-10-21 10:53] VITALS: BP 132/00
--- NOTE | 2016-10-21 13:26 | NUR ---
OCCUPATIONAL THERAPY NOTE: OT CONSULT RECEIVED AND CHART REVIEWED. ? OT IS APPROPRIATE, PT IS FROM [facility], [facility]1983, IS DEPENDENT WITH [facility] CAN FEED HERSELF WITH MIN ASSIST ANS SET-UP PER HER W-10, PT IS NPO CURRENTLY, W/C BOUND, CURRENTLY NOT FOLLOWING COMMANDS. OT WILL F/U TOMORROW PENDING SWALLOW EVAL IF APPROPRIATE.
--- NOTE | 2016-10-21 14:35 | Discharge Summary ---
See Addendum Visit Information Visit Dates Admission Date: 10/19/16 Discharge Date: 10/23/16 Hospital Course Course Attending Physician: FUENTES GANT Primary Care Physician: KARINE LOZANO MD Consulting Request: Consulting Specialty: Neurology Consulting Physician: Dr. 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 Vitals on admission showed temperature 98.2, pulse rate of 133, respiratory rate of 16, blood pressure 159/74 oxygen saturation 96% on 4 L of nasal cannula. First troponin has been negative with no significant ST-T wave EKG change except for A. fib. Head CT: No evidence for acute intracranial injury. Stable age-appropriate appearance of the brain. Left frontal meningioma. Patient was seen by neurologist, Dr. Lewis in ER. As it was acute left MCA territory ischemic stroke with uncertain onset time, approaching the 3 hour window at the time of discussions between Dr. Lewis, the patient's power of ip technology transactions attorney, and Dr. Quiroz so decision was made to defer TPA. Patient was admitted on telemetry floor for acute left MCA ischemic stroke and rapid A. fib. 1. Left MCA ischemic stroke Patient was started on aspirin and statin. He was nothing by mouth initially and swallow evaluation was done that she did not pass. Per neuro prognosis was guarded. This event was likely secondary thromboembolic because of a history of A. fib and not being on anticoagulation. No MRI given non-MRI safe pacemaker. Occupational, physical, speech therapy were on board. Repeat CT head on 10/20/2016 IMPRESSION: There is an evolving, acute to subacute infarction involving the left coronal radiata, caudate nucleus, putamen and external capsule. No hemorrhagic transformation is seen. There is mild local mass effect, without midline shift. The quadrigeminal plate cisterns remain patent. [id number] DOPPLER IMPRESSION: 1. RIGHT: Minimal, nonhemodynamically significant stenosis of the proximal right internal carotid artery corresponding to a 0-49% stenosis by velocity criteria. 2. LEFT: Minimal, nonhemodynamically significant stenosis of the proximal left internal carotid artery corresponding to a 0-49% stenosis by velocity criteria. 3. Antegrade flow is seen via the bilateral vertebral arteries. Patient failed swallow evaluation again. Goals of care were discussed with the sister and patient was made DNR/DNI. But she was still not willing for NG tube placement and tube feeds. 2. Rapid A. fib She was started on IV Cardizem drip. Patient was also seen by coconut cooker and they recommended to continue aspirin and statin. Echocardiogram cardiogram was also ordered to assess left ventricular function and cardioembolic source for stroke. He also recommended to do carotid ultrasound. Anticoagulation was deferred to avoid hemorrhagic transformation. 3. COPD exacerbation Patient was having respiratory distress from COPD exacerbation. She was in respiratory failure saturating 90% on 4 L of oxygen and tachycardia secondary to respiratory distress. After having failed multiple swallow evaluation and patient's PRA refusing artificial feeding including NG tube feeds a decision was made to change CODE STATUS to comfort care. Allergies: Coded Allergies: NO KNOWN ALLERGIES (02/13/12) Significant Procedures: ECHOCARDIOGRAM 10/20/16 CONCLUSIONS 1. Normal EF of 60%. 2. Severe right atrial enlargement. 3. Mild mitral regurgitation. 4. Moderate to severe tricuspid regugitation. 5. Mild pulmonic regurgitation. 7. Severe pulmonary hypertension. Disposition Summary Disposition Principal Diagnosis: Left MCA acute ischemic infarct Additional Diagnosis: Rapid A. fib Discharge Disposition: hospice - medical facilit Discharge Instructions General Discharge Information Code Status: Hospice Patient's Diet: Comfort feed Patient's Activity: As tolerated Follow-Up Instructions/Appts: Further plan as per hospice team. Medications at Discharge Discharge Medications: Continue taking these medications: Ergocalciferol (Vitamin D2) (Vitamin D2) 50,000 UNIT CAPSULE 1 Capsule ORAL ONCE A MONTH Instructions: Reason to Stop at ADM:NPO Furosemide (Furosemide) 20 MG TABLET 1 Tablet ORAL DAILY Qty = 14 Instructions: Reason to Stop at ADM: NPO, DEHYDRATED Verapamil HCl (Verapamil ER) 240 MG CAP24H.PEL 1 Capsule ORAL DAILY Qty = 14 Instructions: Reason to Stop at ADM: WILL CHANGE TO IV PT IS NPO Mirtazapine (Mirtazapine) 15 MG TABLET 0.5 Tablet ORAL Every night Qty = 15 Instructions: Reason to Stop at ADM: AMS, NPO Melatonin (Melatonin) 3 MG TABLET 1 Tablet ORAL Every night Instructions: Reason to Stop at ADM: LETHARGIC Calcium Polycarbophil (Fiber Lax) 625 MG TABLET 1 Tablet ORAL Every night Instructions: Reason to Stop at ADM: NPO Trazodone HCl (Trazodone HCl) 50 MG TABLET 0.5 Tablet ORAL TWICE DAILY Instructions: Reason to Stop at ADM: NPO AND AMS Divalproex Sodium (Depakote Sprinkle) 125 MG CAP.SPRINK 1 Capsule ORAL DAILY Instructions: Reason to Stop at ADM: PO to IV Copies To: BLAKE DEVRIES,KARINE Workman Attending MD Review Statement Documenting Attending: FUENTES GANT MD
--- NOTE | 2016-10-21 16:11 | PN- Cardiology ---
Subjective Subjective: * Patient is non-communicative at this time. * atrial fibrillation with increased heart rate * normal EF on echo with no obvious thrombus Objective Vital Signs and I&Os Vital Signs Date Time Temp Pulse Resp B/P B/P Pulse O2 O2 Flow FiO2 Mean Ox Delivery Rate 10/21 1053 98.1 98 18 132/00 97 Nasal 2.0L Cannula 10/21 0800 95 Nasal 2.0L Cannula 10/21 0000 92 Nasal 2.0L Cannula 10/20 2352 97.6 79 18 108/68 92 Nasal 2.5L Cannula Intake & Output 10/21 1600 10/21 0800 10/21 0000 10/20 1600 10/20 0800 10/20 0000 Intake Total 450 460 510 450 460 250 Output Total Balance 450 460 510 450 460 250 Intake, IV 450 460 460 450 460 250 Intake, Oral 0 50 0 0 0 Number 1 1 2 Bowel Movements Patient 84 lb 1.98 oz 84 lb 1.98 oz Weight Weight Bernie Lift Measurement Method Physical Exam: General: WD/ thin female in NAD Neck: no JVD Heart: irregularly irregular Extremities: no edema Assessment/Plan Assessment/Plan * Awaiting swallow evaluation. * begin chronic anticoagulation with coumadin in one week. * Bein verapamil 180mg PO BID and wean off IV cardizem after second oral dose of verapamil. Continue her statin. Check TFT's. Continue telemetry? Yes
[2016-10-21 16:23] VITALS: BP 110/60
[2016-10-22 00:29] VITALS: BP 118/67
[2016-10-22 08:00] VITALS: BP 110/66
--- NOTE | 2016-10-22 08:04 | PN- Housestaff ---
Subjective Follow-up For: stroke Subjective: Seen and examined at bedside. Is aroused by verbal stimuli, rmains non verbal. O /n events of increased agitation requiring depkone IV doses and upper extremity soft restrain noted. Pt not fully awake to go through formal swallow study yesterday, will await today's trial. Spoke extensively to sister yesterday about code status and golas of care, she wanted time to think about it. As of now, pt code status is still "DNI". Review of Systems Constitutional: Reports: no symptoms. Objective Last 24 Hrs of Vital Signs/I&O Vital Signs Date Time Temp Pulse Resp B/P B/P Pulse O2 O2 Flow FiO2 Mean Ox Delivery Rate 10/22 1602 96 Nasal 4.0L Cannula 10/22 1530 97.7 93 18 112/60 91 Nasal Cannula 10/22 1446 Nasal 4.0L Cannula 10/22 1315 109 20 130/68 100 Nasal 4.0L Cannula 10/22 1235 98 Nasal 5.0L Cannula 10/22 1225 80 Nasal 3.0L Cannula 10/22 1210 86 Nasal 2.0L Cannula 10/22 0800 97.7 120 20 110/66 96 Nasal 2.0L Cannula 10/22 0029 98.8 82 24 118/67 10/22 0023 97 Nasal 3.0L Cannula 10/22 0000 93 Nasal 2.0L Cannula Intake & Output 10/22 1600 10/22 0800 10/22 0000 Intake Total 460 600 460 Output Total Balance 460 600 460 Intake, IV 460 600 460 Intake, Oral 0 0 Number 1 1 Bowel Movements Physical Exam General Appearance: AWAKE BUT NOT ORIENTED Other Physical Findings: Cardiovascular: Normal S1, Normal S2, irregular rate Lungs: Normal Air Movement Abdomen: Normal Bowel Sounds, Soft Neurological: somnolent,non verbal, but does open eyes, not able to follow commands. Current Medications: Current Medications Sig/Gabriel Start time Last Medication Dose Route Stop Time Status Admin Acetaminophen 650 MG Q6P PRN 10/19 1400 AC PO Albuterol Sulfate 3 ML Q4P PRN 10/22 1300 AC 10/22 INH 1300 Aspirin 300 MG DAILY 10/20 1000 AC 10/22 NM 0913 Atorvastatin Calcium 80 MG 1700 10/19 1700 AC PO Dextrose/Sodium 1,000 ML Q20H 10/20 0945 AC 10/21 Chloride IV 1911 Diltiazem HCl 125 MG Q24H 10/19 1930 AC 10/22 Sodium Chloride 100 ML IV 1210 Heparin Sodium 5,000 UNIT Q8 10/19 1400 AC 10/22 (Porcine) SC 1522 Ipratropium [place] 2.5 ML Q4P PRN 10/22 1500 AC INH Valproate Sodium 125 MG DAILY PRN 10/19 1900 AC Sodium Chloride 100 ML IV Last 24 Hrs of Lab/Fransico Results Last 24 Hrs of Labs/Mics: Laboratory Tests 10/22/16 1250: Troponin I < 0.01 10/22/16 0807: Anion Gap 11, Estimated GFR > 60, BUN/Creatinine Ratio 24.0, CBC w Diff NO MAN DIFF REQ, RBC 4.31, MCV 96.1, MCH 31.7 H, RDW 14.3, MPV 8.6, Gran % 82.2 H, Lymphocytes % 8.1 L, Monocytes % 8.8, Eosinophils % 0.6, Basophils % 0.3, Absolute Granulocytes 4.1, Absolute Lymphocytes 0.4 L, Absolute Monocytes 0.4, Absolute Eosinophils 0, Absolute Basophils 0, PUBS MCHC 33.0 Assessment/Plan Assessment: 84-year-old woman with past medical history of dementia, COPD not on home oxygen according to the sister, dementia, interstitial lung disease, hyperlipidemia, hypertension, atrial fibrillation not on anticoagulation, 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 Vitals on admission showed temperature 98.2, pulse rate of 133, respiratory rate of 16, blood pressure 159/74 oxygen saturation 96% on 4 L of nasal cannula First troponin has been negative with no significant ST-T wave EKG change except for A. fib Assessment and plan: 1. Left MCA ischemic stroke: >72 HR S/P subcortical stroke, MCA, Did not receive tPA due to uncertainty of onset.. On ASA rectally,awaiting swallow eval to start statin. Failed swallow eval today, For now will continue npo with dextrose IV. Plannng to discuss goals of care with sister today. - 2. History of A. fib: The patient was found to be in rapid A. fib, rate controlled by Cardizem drip currently at 7.5 -Cardiology reccomended taper transition of Cardizem drip to Verapamil SR 180 mg , however pt failing swallow eval and reluctance of POA to place an NG tube, will make us continue the drip. 3. History of dementia/mood disorder/agitation: The patient is apparently on low-dose of Depakote for mood disorder/agitation as per her sister, and not for a seizure disorder - We will continue Depakote 4. History of diastolic CHF: - Currently the patient does not seem to be in florid CHF in fact is dehydrated, and altered - Because we are keeping him nothing by mouth, will hold Lasix - We will provide gentle hydration 5. As patient is nothing by mouth will hold off on mirtazapine, trazodone, ergocalciferol, fibri and melatonin 6. Nothing by mouth 6. Subcutaneous heparin for DVT prophylaxis 7. CODE STATUS: Still remains DNI, sister wanted more time. Problem List: 1. ATRIAL FIBRILATION 2. CVA (cerebral vascular accident) Pain Ratin Pain Location: none Pain Goal: Remain pain free Pain Plan: per pain pathway Tomorrow's Labs & Rationales: CBC BEP Consulting Request: Consulting Specialty: Neurology Consulting Physician: Dr. Lewis Reason for Consult: STROKE
[2016-10-22 08:59] LABS: ABSOLUTE BASOPHIL COUNT 0 /CUMM (0.0-0.2); ABSOLUTE EOSINOPHIL COUNT 0 /CUMM (0.0-0.7); ABSOLUTE GRANULOCYTE CT 4.1 /CUMM (1.4-6.5); ABSOLUTE LYMPH COUNT 0.4 /CUMM (1.2-3.4); ABSOLUTE MONOCYTE COUNT 0.4 /CUMM (0.10-0.60); BASOPHIL % 0.3 % (0.0-2.0); EOSINOPHIL % 0.6 % (0-5); GRANULOCYTE % 82.2 % (42.2-75.2); HEMATOCRIT 41.4 % (37-47); MEAN CORPUSCULAR HGB 31.7 PG (27.0-31.0); MEAN CORPUSCULAR VOLUME 96.1 FL (81.0-99.0); MEAN PLATELET VOLUME 8.6 FL (7.4-10.4); PLATELET COUNT 120 /CUMM (130-400); RBC DISTRIBUTION WIDTH 14.3 % (11.5-14.5); RED BLOOD CELL CT 4.31 /CUMM (4.20-5.40)
--- NOTE | 2016-10-22 09:46 | PN- Att Addend ---
Attending Addendum Attending Brief Note Patient is awake but not oriented. She is on restraints. General Appearance: Not oriented Cardiovascular: irregular rhythm Lungs: Clear to Auscultation, Normal Air Movement Abdomen: Normal Bowel Sounds, Soft, No Tenderness Neurological: Right-sided weakness Extremities: No Clubbing, No Cyanosis, No Edema Assessment CVA likely embolic in the setting of atrial fibrillation with dense right-sided hemiplegia that has somewhat improved. Carotid ultrasounds and echocardiogram within normal limits. Cardiology has cleared for full anticoagulation. Unfortunately patient failed her initial swallow evaluation. She will be evaluated again. Plan Swallow evaluation Continue full dose aspirin A. fib management per cardiology Gentle hydration Continue other current medications PT and OT evaluation DVT prophylaxis Current Medications Sig/Gabriel Start time Last Medication Dose Route Stop Time Status Admin Acetaminophen 650 MG Q6P PRN 10/19 1400 AC PO Acetaminophen 600 MG Q6P PRN 10/19 1400 DC IV Aspirin 300 MG DAILY 10/20 1000 AC 10/22 CA 0913 Atorvastatin Calcium 80 MG 1700 10/19 1700 AC PO Dextrose/Sodium 1,000 ML Q20H 10/20 0945 AC 10/21 Chloride IV 1911 Diltiazem HCl 125 MG Q24H 10/19 1930 AC 10/21 Sodium Chloride 100 ML IV 1911 Heparin Sodium 5,000 UNIT Q8 10/19 1400 AC 10/22 (Porcine) SC 0551 Morphine Sulfate 2 MG Q4P PRN 10/19 1400 DC IV Valproate Sodium 125 MG DAILY PRN 10/19 1900 AC Sodium Chloride 100 ML IV Laboratory Tests 10/22 0807 Chemistry Sodium (137 - 145 mmol/L) 148 H Potassium (3.5 - 5.1 mmol/L) 4.1 Chloride (98 - 107 mmol/L) 104 Carbon Dioxide (22 - 30 mmol/L) 34 H Anion Gap (5 - 16) 11 BUN (7 - 17 mg/dL) 12 Creatinine (0.5 - 1.0 mg/dL) 0.5 Estimated GFR (>60 ml/min) > 60 BUN/Creatinine Ratio (7 - 25 %) 24.0 Hematology CBC w Diff NO MAN DIFF REQ WBC (4.8 - 10.8 /CUMM) 5.0 RBC (4.20 - 5.40 /CUMM) 4.31 Hgb (12.0 - 16.0 G/DL) 13.7 Hct (37 - 47 %) 41.4 MCV (81.0 - 99.0 FL) 96.1 MCH (27.0 - 31.0 PG) 31.7 H RDW (11.5 - 14.5 %) 14.3 Plt Count (130 - 400 /CUMM) 120 L MPV (7.4 - 10.4 FL) 8.6 Gran % (42.2 - 75.2 %) 82.2 H Lymphocytes % (20.5 - 51.1 %) 8.1 L Monocytes % (1.7 - 9.3 %) 8.8 Eosinophils % (0 - 5 %) 0.6 Basophils % (0.0 - 2.0 %) 0.3 Absolute Granulocytes (1.4 - 6.5 /CUMM) 4.1 Absolute Lymphocytes (1.2 - 3.4 /CUMM) 0.4 L Absolute Monocytes (0.10 - 0.60 /CUMM) 0.4 Absolute Eosinophils (0.0 - 0.7 /CUMM) 0 Absolute Basophils (0.0 - 0.2 /CUMM) 0 PUBS MCHC (33.0 - 37.0 G/DL) 33.0 Vital Signs Date Time Temp Pulse Resp B/P B/P Pulse O2 O2 Flow FiO2 Mean Ox Delivery Rate 10/22 0800 97.7 120 20 110/66 96 Nasal 2.0L Cannula 10/22 0029 98.8 82 24 118/67 10/22 0023 97 Nasal 3.0L Cannula 10/22 0000 93 Nasal 2.0L Cannula 10/21 1623 98.1 85 18 110/60 99 10/21 1600 Nasal 2.0L Cannula 10/21 1053 98.1 98 18 132/00 97 Nasal 2.0L Cannula
--- NOTE | 2016-10-22 11:07 | NUR ---
OT recieved consult for evaluation. Patient unable to participate in evaluation due to exhaustion and inability to respond.
[2016-10-22 13:15] VITALS: BP 130/68
--- NOTE | 2016-10-22 13:39 | RADIOLOGY REPORT ---
EXAMINATION: XR PORTABLE CHEST CLINICAL INFORMATION: Pneumonia versus worsening CHF, respiratory distress with low oxygen saturation. COMPARISON: 12/16/2014. TECHNIQUE: Portable frontal view of the chest was obtained. FINDINGS: Heart remains enlarged containing a right ventricular pacer lead with the generator from a right prepectoral subclavian approach. There is no evidence of a focal infiltrate on today's examination. While there is some cephalization of the pulmonary vasculature, no evidence of overt pulmonary edema or pleural effusion is seen. Previously identified bibasilar opacities have resolved. IMPRESSION: Cardiomegaly without definitive evidence of an acute intrathoracic process.
--- NOTE | 2016-10-22 13:41 | Patient Discharge Instructions ---
Discharge Instructions General Discharge Information You were seen/treated for: Left MCA ischemic stroke Rapid MichelleJuancarlos mcqueen Special Instructions: 1. Please follow-up with your primary care provider after discharge 2. Please follow-up with Dr. Lewis, neurology after discharge 3. Please follow-up with your woven blind loom tender after discharge Acute Coronary Syndrome Inclusion Criteria At DC or during hospital stay patient has or had the following: ACS DIAGNOSIS No Discharge Core Measures Meds if any: Prescribed or Continued at Discharge Meds if any: NOT Prescribed or Continued at Discharge Congestive Heart Failure Inclusion Criteria At DC or during hospital stay patient has or had the following: CHF DIAGNOSIS No Discharge Core Measures Meds if any: Prescribed or Continued at Discharge Meds if any: NOT Prescribed or Continued at Discharge Cerebrovascular accident Inclusion Criteria At DC or during hospital stay patient has or had the following: CVA/TIA Diagnosis Yes Discharge Core Measures Meds if any: Prescribed or Continued at Discharge Meds if any: NOT Prescribed or Continued at Discharge Venous thromboembolism Inclusion Criteria VTE Diagnosis No VTE Type NONE VTE Confirmed by (Test) NONE Discharge Core Measures - Per Current guidelines, there needs to be overlap - treatment for the first 5 days of Warfarin therapy. - If discharged on Warfarin prior to 5 days of - overlap therapy, the patient will need to be - assessed for post discharge needs including - *Post discharge parental anticoagulation - *Warfarin and/or parental anticoagulation education - *Follow up date to check INR post discharge At least 5 days overlap therapy as Inpatient No Meds if any: Prescribed or Continued at Discharge Note: Overlap Therapy is Warfarin and Anticoagulant Meds if any: NOT Prescribed or Continued at Discharge
--- NOTE | 2016-10-22 14:01 | Event Note ---
Event Note Event Note: Situation: Patient failed swallow eval and was not able to initiate swallow. Discussed with sister (XAVIER) regarding the implication of a failed swallow eval. POA wanted more time in deciding goals of care. Asked POA if she is okay as a temp measure for us to place an NG-tube for now for medicine administration ( cardiology reccomended verapamil tabs with tapering of drip). At this moment POMichelle does not want NG tube either and requested time to make any further decison.
[2016-10-22 15:30] VITALS: BP 112/60
--- NOTE | 2016-10-22 19:08 | PN- Cardiology ---
Subjective Subjective: * Patient is not responding to verbal stimuli. * atrial fibrillation * Patient could not pass swallow study. * free T4 is at the upper limits of normal Objective Vital Signs and I&Os Vital Signs Date Time Temp Pulse Resp B/P B/P Pulse O2 O2 Flow FiO2 Mean Ox Delivery Rate 10/22 1602 96 Nasal 4.0L Cannula 10/22 1530 97.7 93 18 112/60 91 Nasal Cannula 10/22 1446 Nasal 4.0L Cannula 10/22 1315 109 20 130/68 100 Nasal 4.0L Cannula 10/22 1235 98 Nasal 5.0L Cannula 10/22 1225 80 Nasal 3.0L Cannula 10/22 1210 86 Nasal 2.0L Cannula 10/22 0800 97.7 120 20 110/66 96 Nasal 2.0L Cannula 10/22 0029 98.8 82 24 118/67 10/22 0023 97 Nasal 3.0L Cannula 10/22 0000 93 Nasal 2.0L Cannula Intake & Output 10/22 1600 10/22 0800 10/22 0000 10/21 1600 10/21 0800 10/21 0000 Intake Total 460 600 460 450 460 510 Output Total Balance 460 600 460 450 460 510 Intake, IV 460 600 460 450 460 460 Intake, Oral 0 0 0 50 Number 1 1 1 Bowel Movements Patient 84 lb 1.98 oz Weight Physical Exam: General: WD/ thin female in NAD Neck: no JVD Heart: irregularly irregular Extremities: no edema Assessment/Plan Assessment/Plan * Family would like more time to see if the patient improves before agreeing to a PEG. For now continue IV Cardizem for rate control. * begin chronic anticoagulation with coumadin in one week. Continue telemetry? Yes
[2016-10-23] VITALS: BP 108/64
[2016-10-23 00:13] VITALS: BP 108/64; BP 98/58
[2016-10-23 08:00] VITALS: BP 100/60
--- NOTE | 2016-10-23 08:20 | PN- Housestaff ---
Subjective Follow-up For: Stroke Subjective: Patient is seen and examined at bedside. She is still on soft restraints with overnight events noted where patient became agitated and kept on pulling nasal cannula. Patient failed swallow evaluation today. Review of Systems Constitutional: Reports: no symptoms, see HPI. Objective Last 24 Hrs of Vital Signs/I&O Vital Signs Date Time Temp Pulse Resp B/P B/P Pulse O2 O2 Flow FiO2 Mean Ox Delivery Rate 10/23 1050 93 Nasal 4.0L Cannula 10/23 1000 Nasal 4.0L Cannula 10/23 0800 97.7 92 20 100/60 95 Nasal 4.0L Cannula 10/23 0000 96 Nasal 4.0L Cannula 10/23 0000 97.5 90 18 108/64 95 Nasal 4.0L Cannula 10/22 1602 96 Nasal 4.0L Cannula 10/22 1600 96 Nasal 4.0L Cannula Intake & Output 10/23 1600 10/23 0800 10/23 0000 Intake Total 460 460 460 Output Total Balance 460 460 460 Intake, IV 460 460 460 Intake, Oral 0 0 Number 0 Bowel Movements Physical Exam General Appearance: awake but non verbal Cardiovascular: Regular Rate, Normal S1, Normal S2 Lungs: Clear to Auscultation, Normal Air Movement Abdomen: Normal Bowel Sounds, Soft Neurological: Sensation Intact Extremities: No Edema, Normal Pulses, No Tenderness/Swelling Vascular: Pulses Symmetrical Assessment/Plan Assessment: 84-year-old woman with past medical history of dementia, COPD not on home oxygen according to the sister, dementia, interstitial lung disease, hyperlipidemia, hypertension, atrial fibrillation not on anticoagulation, 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 Vitals on admission showed temperature 98.2, pulse rate of 133, respiratory rate of 16, blood pressure 159/74 oxygen saturation 96% on 4 L of nasal cannula First troponin has been negative with no significant ST-T wave EKG change except for A. fib Assessment and plan: 1. Left MCA ischemic stroke: >72 HR S/P subcortical stroke, MCA, Did not receive tPA due to uncertainty of onset.. On ASA rectally,awaiting swallow eval to start statin. Failed swallow eval today, For now will continue npo with dextrose IV. Plannng to discuss goals of care with sister today. - 2. History of A. fib: The patient was found to be in rapid A. fib, rate controlled by Cardizem drip currently at 7.5 -Cardiology reccomended taper transition of Cardizem drip to Verapamil SR 180 mg , however pt failing swallow eval and reluctance of POA to place an NG tube, will make us continue the drip. Will also start digoxin 0.125mg IV daily. 3. History of dementia/mood disorder/agitation: The patient is apparently on low-dose of Depakote for mood disorder/agitation as per her sister, and not for a seizure disorder - We will continue Depakote 4. History of diastolic CHF: - Currently the patient does not seem to be in florid CHF in fact is dehydrated, and altered - Because we are keeping him nothing by mouth, will hold Lasix - We will provide gentle hydration 5. As patient is nothing by mouth will hold off on mirtazapine, trazodone, ergocalciferol, fibri and melatonin 6. Nothing by mouth 6. Subcutaneous heparin for DVT prophylaxis 7. CODE STATUS: Still remains DNI, sister wanted more time. Problem List: 1. ATRIAL FIBRILATION 2. CVA (cerebral vascular accident) Pain Ratin Pain Location: none Pain Goal: Remain pain free Pain Plan: none Tomorrow's Labs & Rationales: cbc bep mag Consulting Request: Consulting Specialty: Neurology Consulting Physician: Dr. Lewis Reason for Consult: STROKE
--- NOTE | 2016-10-23 09:12 | PN- Att Addend ---
Attending Addendum Attending Brief Note Patient is awake but not oriented. She is on restraints. General Appearance: Not oriented Cardiovascular: irregular rhythm Lungs: Clear to Auscultation, Normal Air Movement Abdomen: Normal Bowel Sounds, Soft, No Tenderness Neurological: Right-sided weakness Extremities: No Clubbing, No Cyanosis, No Edema Assessment CVA likely embolic in the setting of atrial fibrillation with dense right-sided hemiplegia that has somewhat improved. Carotid ultrasounds and echocardiogram within normal limits. Cardiology has cleared for full anticoagulation. Unfortunately patient failed her swallow evaluation again today. I had a extensive discussion with patient's sister who is her POA about tube feeds. She is reluctant to have any sort of tube feeding including NG. I have given an option for comfort measures and hospice if she continues to fail swallow evaluation. We will test one more time tomorrow and if she fails again will then involve hospice. Plan Swallow evaluation tomorrow Continue full dose aspirin A. fib management per cardiology Gentle hydration Continue other current medications PT and OT evaluation DVT prophylaxis Current Medications Sig/Gabriel Start time Last Medication Dose Route Stop Time Status Admin Acetaminophen 650 MG Q6P PRN 10/19 1400 AC PO Albuterol Sulfate 3 ML Q4P PRN 10/22 1300 AC 10/22 INH 1900 Aspirin 300 MG DAILY 10/20 1000 AC 10/22 MS 0913 Atorvastatin Calcium 80 MG 1700 10/19 1700 AC PO Dextrose/Sodium 1,000 ML Q20H 10/20 0945 AC 10/22 Chloride IV 1837 Diltiazem HCl 125 MG Q24H 10/19 1930 AC 10/22 Sodium Chloride 100 ML IV 1210 Heparin Sodium 5,000 UNIT Q8 10/19 1400 AC 10/23 (Porcine) SC 0614 Ipratropium [place] 2.5 ML Q4P PRN 10/22 1500 AC 10/22 INH 1900 Valproate Sodium 125 MG DAILY PRN 10/19 1900 AC Sodium Chloride 100 ML IV Laboratory Tests 10/23 10/22 0630 1250 Chemistry Sodium (137 - 145 mmol/L) 149 H Potassium (3.5 - 5.1 mmol/L) 3.3 L Chloride (98 - 107 mmol/L) 105 Carbon Dioxide (22 - 30 mmol/L) 36 H Anion Gap (5 - 16) 8 BUN (7 - 17 mg/dL) 9 Creatinine (0.5 - 1.0 mg/dL) 0.5 Estimated GFR (>60 ml/min) > 60 BUN/Creatinine Ratio (7 - 25 %) 18.0 Troponin I (< 0.11 ng/ml) < 0.01 Vital Signs Date Time Temp Pulse Resp B/P B/P Pulse O2 O2 Flow FiO2 Mean Ox Delivery Rate 10/23 0000 96 Nasal 4.0L Cannula 10/23 0000 97.5 90 18 108/64 95 Nasal 4.0L Cannula 10/22 1602 96 Nasal 4.0L Cannula 10/22 1600 96 Nasal 4.0L Cannula 10/22 1530 97.7 93 18 112/60 91 Nasal Cannula 10/22 1446 Nasal 4.0L Cannula 10/22 1315 109 20 130/68 100 Nasal 4.0L Cannula 10/22 1235 98 Nasal 5.0L Cannula 10/22 1225 80 Nasal 3.0L Cannula 10/22 1210 86 Nasal 2.0L Cannula
--- NOTE | 2016-10-23 13:18 | PN- Cardiology ---
Subjective Subjective: * Patient is not responding to verbal stimuli * atrial fibrillation with increased heart rate * sodium 149 with potassium 3.3 Objective Vital Signs and I&Os Vital Signs Date Time Temp Pulse Resp B/P B/P Pulse O2 O2 Flow FiO2 Mean Ox Delivery Rate 10/23 1050 93 Nasal 4.0L Cannula 10/23 1000 Nasal 4.0L Cannula 10/23 0800 97.7 92 20 100/60 95 Nasal 4.0L Cannula 10/23 0000 96 Nasal 4.0L Cannula 10/23 0000 97.5 90 18 108/64 95 Nasal 4.0L Cannula 10/22 1602 96 Nasal 4.0L Cannula 10/22 1600 96 Nasal 4.0L Cannula 10/22 1530 97.7 93 18 112/60 91 Nasal Cannula 10/22 1446 Nasal 4.0L Cannula 10/22 1315 109 20 130/68 100 Nasal 4.0L Cannula Intake & Output 10/23 1600 10/23 0800 10/23 0000 10/22 1600 10/22 0800 10/22 0000 Intake Total 460 460 460 600 460 Output Total Balance 460 460 460 600 460 Intake, IV 460 460 460 600 460 Intake, Oral 0 0 0 0 Number 0 1 1 Bowel Movements Physical Exam: General: WD/ thin female in NAD Neck: no JVD Heart: irregularly irregular and tachycardic Extremities: no edema Assessment/Plan Assessment/Plan * Family refuses both an NG tube and PEG. would like more time to see if the patient improves before agreeing to a PEG. For now continue IV Cardizem for rate control. Add IV digoxin 0.125mg daily for additional rate control. We will avoid beta blockers due to her borderline BP. * Replete potassium. * begin chronic anticoagulation with coumadin in one week. Continue telemetry? Yes
[2016-10-23 16:03] VITALS: BP 102/60
[2016-10-24 04:00] VITALS: BP 122/70
--- NOTE | 2016-10-24 06:47 | PN- Housestaff ---
Subjective Follow-up For: CVA A. fib Subjective: Patient is seen and examined bedside. She does appear to be in mild respiratory distress with audible wheezes. Acute overnight event of rapid rate A. fib requiring increase of the Cardizem drip from 7.5-10 mg in addition to the digoxin 125 g IV that was started, is noted. No other acute overnight event reported. Review of Systems Constitutional: Reports: see HPI. Objective Last 24 Hrs of Vital Signs/I&O Vital Signs Date Time Temp Pulse Resp B/P B/P Pulse O2 O2 Flow FiO2 Mean Ox Delivery Rate 10/24 1013 91 Nasal 4.0L Cannula 10/24 08 91 Nasal 4.0L Cannula 10/24 08 98.8 112 18 120/70 90 Nasal 4.0L Cannula 10/24 0400 136 122/70 10/24 0000 Nasal 4.0L Cannula 10/23 2122 125 110/80 10/23 2102 96 Nasal 4.0L Cannula 10/23 1603 98.2 96 18 102/60 97 10/23 1600 Nasal 4.0L Cannula Intake & Output 10/24 1600 10/24 0800 10/24 0000 Intake Total 630 400 460 Output Total Balance 630 400 460 Intake, IV 630 400 460 Intake, Oral 0 Number 1 Bowel Movements Physical Exam General Appearance: Moderate Distress Assessment/Plan Assessment: 84-year-old woman with past medical history of dementia, COPD not on home oxygen according to the sister, dementia, interstitial lung disease, hyperlipidemia, hypertension, atrial fibrillation not on anticoagulation, 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 Vitals on admission showed temperature 98.2, pulse rate of 133, respiratory rate of 16, blood pressure 159/74 oxygen saturation 96% on 4 L of nasal cannula First troponin has been negative with no significant ST-T wave EKG change except for A. fib Assessment and plan: 1. Left MCA ischemic stroke: >72 HR S/P subcortical stroke, MCA, Did not receive tPA due to uncertainty of onset.. On ASA rectally,awaiting swallow eval to start statin. Failed swallow eval again today. Had a discussion with patient's sister was the peel-away who has decided that she would like to pursue comfort measures. manager of engineering was in the room during discussion and call foot/hospice personnel was informed who will come over and initiated the process. - 2. History of A. fib: Overnight increase in rate requiring increase of Cardizem drip to 10 mg per hour in addition to the digoxin 125 g that was started yesterday. In respiratory status with wheezes probably is precipitating the A. fib. 3. History of dementia/mood disorder/agitation: The patient is apparently on low-dose of Depakote for mood disorder/agitation as per her sister, and not for a seizure disorder - We will continue Depakote 4. History of diastolic CHF: - Currently the patient does not seem to be in florid CHF in fact is dehydrated, and altered - Because we are keeping him nothing by mouth, will hold Lasix - We will provide gentle hydration 5. As patient is nothing by mouth will hold off on mirtazapine, trazodone, ergocalciferol, fibri and melatonin 6. Nothing by mouth 6. Subcutaneous heparin for DVT prophylaxis 7. CODE STATUS: Still remains DNI, sister wanted more time. Problem List: 1. CVA (cerebral vascular accident) Pain Ratin Pain Location: none Pain Goal: Remain pain free Pain Plan: Per pain pathway Tomorrow's Labs & Rationales: none-in transition to comfort measures Consulting Request: Consulting Specialty: Neurology Consulting Physician: Dr. Lewis Reason for Consult: STROKE
--- NOTE | 2016-10-24 06:57 | NUR ---
[id number] JASPREET GOMEZ MD MADE AWARE THAT PT'S HR MAINTAINED IN 120'S-150'S WHILE ON CARDIZEM GTT 7.5ML/HR. BP AT THIS TIME 122/70, PER OK TO INCREASE GTT TO 10ML/HR. WILL CONTINUE TO MONITOR.
[2016-10-24 08:00] VITALS: BP 120/70
--- NOTE | 2016-10-24 09:47 | PN- Att Addend ---
Attending Addendum Attending Brief Note Patient is awake but not oriented. She is on restraints. Having respiratory distress and agitation General Appearance: Respiratory distress Cardiovascular: irregular rhythm Lungs: expiratory wheeze Abdomen: Normal Bowel Sounds, Soft, No Tenderness Neurological: Right-sided weakness Extremities: No Clubbing, No Cyanosis, No Edema Assessment CVA likely embolic in the setting of atrial fibrillation with dense right-sided hemiplegia that has somewhat improved. Carotid ultrasounds and echocardiogram within normal limits. Cardiology has cleared for full anticoagulation. Unfortunately patient failed her swallow evaluation again today. I had a extensive discussion with patient's sister who is her POA about tube feeds. She is reluctant to have any sort of tube feeding including NG. I have given an option for comfort measures and hospice if she continues to fail swallow evaluation. Further decision pending today swallow evaluation. Plan Solu-Medrol 40 mg once TRC and nebs Swallow evaluation Continue full dose aspirin A. fib management per cardiology Gentle hydration Continue other current medications PT and OT evaluation DVT prophylaxis Current Medications Sig/Gabriel Start time Last Medication Dose Route Stop Time Status Admin Acetaminophen 650 MG Q6P PRN 10/19 1400 AC PO Albuterol Sulfate 3 ML Q4P PRN 10/22 1300 AC 10/23 INH 1045 Aspirin 300 MG DAILY 10/20 1000 AC 10/24 [place] 0934 Atorvastatin Calcium 80 MG 1700 10/19 1700 AC PO Dextrose/Sodium 1,000 ML Q20H 10/20 0945 DC 10/22 Chloride IV 1837 Dextrose/Water 1,000 ML ONCE ONE 10/24 0915 AC 10/24 IV 10/24 2234 0934 Digoxin 0.125 MG Q24H 10/23 2000 AC 10/23 IV 2122 Diltiazem HCl 125 MG Q24H 10/19 1930 AC 10/23 Sodium Chloride 100 ML IV 2122 Heparin Sodium 5,000 UNIT Q8 10/19 1400 AC 10/24 (Porcine) SC 0605 Ipratropium [place] 2.5 ML Q4P PRN 10/22 1500 AC 10/23 INH 1045 Magnesium Sulfate 1 GM ONCE ONE 10/23 1330 DC 10/23 Dextrose/Water 100 ML IV 10/23 1729 1453 Methylprednisolone 40 MG ONCE ONE 10/24 0930 DC IV 10/24 0931 Potassium Chloride 40 MEQ Q20H 10/23 1215 DC 10/23 Dextrose/Sodium 1,000 ML IV 1642 Chloride Potassium Chloride 10 MEQ ONCE ONE 10/23 1200 DC 10/23 IV 10/23 1201 1343 Valproate Sodium 125 MG DAILY PRN 10/19 1900 AC Sodium Chloride 100 ML IV Laboratory Tests 10/24 10/23 0620 2200 Chemistry Sodium (137 - 145 mmol/L) 153 H 147 H Potassium (3.5 - 5.1 mmol/L) 4.5 4.0 Chloride (98 - 107 mmol/L) 108 H 106 Carbon Dioxide (22 - 30 mmol/L) 34 H 36 H Anion Gap (5 - 16) 10 6 BUN (7 - 17 mg/dL) 13 9 Creatinine (0.5 - 1.0 mg/dL) 0.5 0.5 Estimated GFR (>60 ml/min) > 60 > 60 BUN/Creatinine Ratio (7 - 25 %) 26.0 H 18.0 Magnesium (1.6 - 2.3 mg/dL) 2.0 Vital Signs Date Time Temp Pulse Resp B/P B/P Pulse O2 O2 Flow FiO2 Mean Ox Delivery Rate 10/24 0800 98.8 112 18 120/70 90 Nasal 4.0L Cannula 10/24 0400 136 122/70 10/24 0000 Nasal 4.0L Cannula 10/23 2122 125 110/80 10/23 2102 96 Nasal 4.0L Cannula 10/23 1603 98.2 96 18 102/60 97 10/23 1600 Nasal 4.0L Cannula 10/23 1050 93 Nasal 4.0L Cannula 10/23 1000 Nasal 4.0L Cannula
--- NOTE | 2016-10-24 11:09 | NUR ---
OCCUPATIONAL THERAPY NOTE: OT IS ON HOLD WILL NOT FOLLOW, PT IS NOT FOLLOWING COMMANDS WAS DEPENDENT WITH ADL IS NPO. OT IS NOT APPROPRIATE AT THIS TIME.
[2016-10-24 16:21] VITALS: BP 110/70
[2016-10-24 23:25] VITALS: BP 110/62
--- NOTE | 2016-10-25 01:44 | NUR ---
pt b/l soft wrist restraints removed at 0130. pt no longer attempting to remove lines/o2 tubing. pt sedated, arousable when spoken to but falls right back asleep. dr. carranza aware. bed alarm remains in place, 3 bed rails up, bed low and locked. will ctm.
--- NOTE | 2016-10-25 07:37 | PN- Housestaff ---
Subjective Follow-up For: CVA AFIB Subjective: Seen and examined at bedside. Patient is awake but very minimally reposnsive to verbal commands. rate still remains high despite Digoxin addition and increased cardizem. Review of Systems Constitutional: Reports: see HPI. Objective Last 24 Hrs of Vital Signs/I&O .. 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 Vitals on admission showed temperature 98.2, pulse rate of 133, respiratory rate of 16, blood pressure 159/74 oxygen saturation 96% on 4 L of nasal cannula First troponin has been negative with no significant ST-T wave EKG change except for A. fib Assessment and plan: 1. Left MCA ischemic stroke: >72 HR S/P subcortical stroke, MCA, Did not receive tPA due to uncertainty of onset.. On ASA rectally,awaiting swallow eval to start statin. Failed swallow eval again today. Had a discussion with patient's sister (XAVIER) who has decided that she would like to pursue comfort measures. Will be discharged from tele and admitted to comfort/hospice. - 2. History of A. fib: Overnight increase in rate requiring increase of Cardizem drip to 10 mg per hour in addition to the digoxin 125 g that was started yesterday. In respiratory status with wheezes probably is precipitating the A. fib. 3. History of dementia/mood disorder/agitation: The patient is apparently on low-dose of Depakote for mood disorder/agitation as per her sister, and not for a seizure disorder - We will continue Depakote 4. History of diastolic CHF: - Currently the patient does not seem to be in florid CHF in fact is dehydrated, and altered - Because we are keeping him nothing by mouth, will hold Lasix - We will provide gentle hydration 5. As patient is nothing by mouth will hold off on mirtazapine, trazodone, ergocalciferol, fibri and melatonin 6. Nothing by mouth 6. Subcutaneous heparin for DVT prophylaxis 7. CODE STATUS: Still remains DNI, sister wanted more time. Problem List: 1. ATRIAL FIBRILATION 2. CVA (cerebral vascular accident) Pain Ratin Pain Location: none Pain Goal: Remain pain free Pain Plan: per pain pathway Tomorrow's Labs & Rationales: none Consulting Request: Consulting Specialty: Neurology Consulting Physician: Dr. Lewis Reason for Consult: STROKE
[2016-10-25 08:42] VITALS: BP 122/64
--- NOTE | 2016-10-25 08:52 | PN- Att Addend ---
Attending Addendum Attending Brief Note Patient is sleepy and lethargic General Appearance: sleepy Cardiovascular: irregular rhythm Lungs: expiratory wheeze Abdomen: Normal Bowel Sounds, Soft, No Tenderness Neurological: Right-sided weakness Extremities: No Clubbing, No Cyanosis, No Edema Assessment CVA likely embolic in the setting of atrial fibrillation with dense right-sided hemiplegia that has somewhat improved. Carotid ultrasounds and echocardiogram within normal limits. Cardiology has cleared for full anticoagulation. Unfortunately patient failed her swallow evaluation again today. I had a extensive discussion with patient's sister who is her POA about tube feeds. She is reluctant to have any sort of tube feeding including NG. After failing multiple attempts at swallow evaluation patient's sister has agreed for comfort care and hospice Plan Hospice evaluation TRC and nebs Continue full dose aspirin A. fib management per cardiology Gentle hydration Continue other current medications PT and OT evaluation DVT prophylaxis Current Medications Sig/Gabriel Start time Last Medication Dose Route Stop Time Status Admin Acetaminophen 650 MG Q6P PRN 10/19 1400 AC PO Albuterol Sulfate 3 ML Q4P PRN 10/22 1300 AC 10/24 INH 1011 Aspirin 300 MG DAILY 10/20 1000 AC 10/24 [place] 0934 Atorvastatin Calcium 80 MG 1700 10/19 1700 AC PO Dextrose/Water 1,000 ML ONCE ONE 10/25 0745 AC 10/25 IV 10/25 2104 0809 Dextrose/Water 1,000 ML ONCE ONE 10/24 0915 DC 10/24 IV 10/24 2234 0934 Digoxin 0.125 MG Q24H 10/23 2000 AC 10/24 IV 2054 Diltiazem HCl 125 MG Q24H 10/19 1930 AC 10/24 Sodium Chloride 100 ML IV 2058 Heparin Sodium 5,000 UNIT Q8 10/19 1400 AC 10/25 (Porcine) SC 0558 Ipratropium [place] 2.5 ML Q4P PRN 10/22 1500 AC 10/24 INH 1011 Methylprednisolone 40 MG ONCE ONE 10/24 0930 DC 10/24 IV 10/24 0931 1050 Potassium Chloride 40 MEQ Q20H 10/23 1215 DC 10/23 Dextrose/Sodium 1,000 ML IV 1642 Chloride Valproate Sodium 125 MG DAILY PRN 10/19 1900 AC Sodium Chloride 100 ML IV Laboratory Tests 10/25 0645 Chemistry Sodium (137 - 145 mmol/L) 146 H Potassium (3.5 - 5.1 mmol/L) 4.7 Chloride (98 - 107 mmol/L) 105 Carbon Dioxide (22 - 30 mmol/L) 35 H Anion Gap (5 - 16) 5 BUN (7 - 17 mg/dL) 19 H Creatinine (0.5 - 1.0 mg/dL) 0.6 Estimated GFR (>60 ml/min) > 60 BUN/Creatinine Ratio (7 - 25 %) 31.7 H Magnesium (1.6 - 2.3 mg/dL) 2.1 Vital Signs Date Time Temp Pulse Resp B/P B/P Pulse O2 O2 Flow FiO2 Mean Ox Delivery Rate 10/25 0842 97.8 69 20 122/64 94 Nasal 4.0L Cannula 10/25 0000 Nasal 4.0L Cannula 10/24 2325 98.0 70 18 110/62 97 Nasal 4.0L Cannula 10/24 2054 103 108/00 10/24 1915 92 Nasal 4.0L Cannula 10/24 1621 98.1 83 18 110/70 95 Nasal 4.0L Cannula 10/24 1013 91 Nasal 4.0L Cannula
--- NOTE | 2016-10-25 10:37 | PN- Cardiology ---
Subjective Subjective: Patient seen and examined. She is seen lying flat in bed maintained on supplemental oxygen via nasal cannula. She appears to be mildly more awake today , in no acute distress, but is not communicating. She is not oriented to person/ place/time and does not follow commands. She is not able to provide subjective complaints. Review of systems is unobtainable. Review of Systems Constitutional: Reports: see HPI. Objective Vital Signs and I&Os Vital Signs Date Time Temp Pulse Resp B/P B/P Pulse O2 O2 Flow FiO2 Mean Ox Delivery Rate 10/25 1012 92 Nasal 4.0L Cannula 10/25 0842 97.8 69 20 122/64 94 Nasal 4.0L Cannula 10/25 0000 Nasal 4.0L Cannula 10/24 2325 98.0 70 18 110/62 97 Nasal 4.0L Cannula 10/24 2054 103 108/00 10/24 1915 92 Nasal 4.0L Cannula 10/24 1621 98.1 83 18 110/70 95 Nasal 4.0L Cannula Intake & Output 10/25 1600 10/25 0800 10/25 0000 10/24 1600 10/24 0800 10/24 0000 Intake Total 80 680 630 400 460 Output Total Balance 80 680 630 400 460 Intake, IV 80 680 630 400 460 Intake, Oral 0 0 0 Number 0 1 Bowel Movements Physical Exam: General- thin/frail elderly woman in no acute distress HEENT- NCAT, PERRL, EOMI, anicteric sclera, moist mucous membranes, no JVD, nasal cannula in place CVS- irregularly irregular Resp- CTA bilatearlly GI- Soft, nontender, nondistended, bowel sounds intact Neuro- Awake but not orient to person/place/time Ext- 2+ pulses, no edema Current Medications: Current Medications Sig/Gabriel Start time Last Medication Dose Route Stop Time Status Admin Acetaminophen 650 MG Q6P PRN 10/19 1400 AC PO Albuterol Sulfate 3 ML Q4P PRN 10/22 1300 AC 10/24 INH 1011 Aspirin 300 MG DAILY 10/20 1000 AC 10/25 [place] 1020 Atorvastatin Calcium 80 MG 1700 10/19 1700 AC PO Dextrose/Water 1,000 ML ONCE ONE 10/25 0745 AC 10/25 IV 10/25 2104 0809 Dextrose/Water 1,000 ML ONCE ONE 10/24 0915 DC 10/24 IV 10/24 2234 0934 Digoxin 0.125 MG Q24H 10/24 1999 AC 10/24 IV 2054 Diltiazem HCl 125 MG Q24H 10/19 1930 AC 10/25 Sodium Chloride 100 ML IV 1026 Heparin Sodium 5,000 UNIT Q8 10/19 1400 AC 10/25 (Porcine) SC 0558 Ipratropium S [place] 2.5 ML Q4P PRN 10/22 1500 AC 10/24 INH 1011 Valproate Sodium 125 MG DAILY PRN 10/19 1900 AC Sodium Chloride 100 ML IV Results Last 48 Hrs of Labs/Mics: Laboratory Tests 10/25/16 0645: Anion Gap 5, Estimated GFR > 60, BUN/Creatinine Ratio 31.7 H, Magnesium 2.1 10/24/16 0620: Anion Gap 10, Estimated GFR > 60, BUN/Creatinine Ratio 26.0 H, Magnesium 2.0 10/23/16 2200: Anion Gap 6, Estimated GFR > 60, BUN/Creatinine Ratio 18.0 Assessment/Plan Assessment/Plan * Patient with recent embolic CVA and subsequent right sided hemiplegia. cafeteria monitor continues to demonstrated atrial flutter. She is still not tolerating anything by mouth and has failed several swallow evaluations. Given her high CHADS-VASC score and patient is a candidate for anticoagulation. Patients family does not want to pursue any NGT or tube feeds. Per attending note family discussion resulted in the decision to convert patient to comfort measures with hospice evaluation for which patient may be followed off any further anticoagulation. Continue telemetry? Not applicable
== END 2016-10-25 13:40 | disposition hospice, home (50) | DRG 65 ==
LOC: ERH 08:39 → 2NA 10:39 → 1NO 10:39 → ERHI 10:39 → ENRESERV 14:25 → ENTRNSPT 16:54 → 1NO 17:26 → EDTRNSPT 17:51 → CMPTRNSPT 17:51 → 1NO 10-20 08:46 → 2NA 10-25 13:29
PROVIDERS: Emergency Medicine; Internal Medicine; Student in an Organized Health Care Education/Training Program; ADMIT Internal Medicine
DX: I63.9 Cerebral infarction, unspecified (principal); I48.92 Unspecified atrial flutter; J84.9 Interstitial pulmonary disease, unspecified; G81.91 Hemiplegia, unspecified affecting right dominant side; I50.32 Chronic diastolic (congestive) heart failure; I48.2 Chronic atrial fibrillation; E86.0 Dehydration; I27.2 Other secondary pulmonary hypertension; I13.0 Hypertensive heart and chronic kidney disease with heart failure and stage 1 through stage 4 chronic kidney disease, or unspecified chronic kidney disease; F03.90 Unspecified dementia, unspecified severity, without behavioral disturbance, psychotic disturbance, mood disturbance, and anxiety; J44.1 Chronic obstructive pulmonary disease with (acute) exacerbation; Z51.5 Encounter for palliative care; N18.9 Chronic kidney disease, unspecified; E78.5 Hyperlipidemia, unspecified; Z95.0 Presence of cardiac pacemaker
CPT/HCPCS: 1NP; 36415; 81001; 82436; 93005; 93010; 93306; 96374; 97161-GP; 99291; J0131; J1160; J1644; J2920; J7042; J7060

== ENCOUNTER 2016-10-25 13:32 | Inpatient (IN) | payer OTHER ==
[~2016-10-25 13:32] MED LIST changes: +DEPAKOTE SPRIN125 M1 PO; +FIBER LAX625 MG PO; +FUROSEMIDE20 M1 PO; +MELATONIN3 M4 PO; +MIRTAZAPINE15 M2 PO; +TRAZODONE HCL50 M1 PO; +VERAPAMIL ER240 MG PO; +VITAMIN D250000 UNIT PO
--- NOTE | 2016-10-25 16:36 | History & Physical ---
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 Patient was seen by neurologist, Dr. Lewis in ER. As it was acute left MCA territory ischemic stroke with uncertain onset time, approaching the 3 hour window at the time of discussions between Dr. Lewis, the patient's power of chicken fancier, and Dr. Quiroz so decision was made to defer TPA. Patient was admitted on telemetry floor for acute left MCA ischemic stroke and rapid A. fib. 1. Left MCA ischemic stroke Patient was started on aspirin and statin. She was nothing by mouth initially and swallow evaluation was done that she did not pass. Per neuro prognosis was guarded. This event was likely secondary thromboembolic because of a history of A. fib and not being on anticoagulation. No MRI given non-MRI safe pacemaker. Occupational, physical, speech therapy were on board. Repeat CT head on 2016 showed an evolving, acute to subacute infarction . Patient failed swallow evaluation multiple times. Goals of care were discussed with the sister (POA) and patient was made DNR/DNI. But she was not willing for NG tube placement and tube feeds. She was also given an option for comfort measures and hospice if she continues to fail swallow evaluation. After failing multiple attempts of swallow evaluation patient's sister agreed for comfort care and hospice. 2. Rapid A. fib She was started on IV Cardizem drip. Patient was also seen by plastic and reconstructive surgeon and they recommended aspirin and statin. Echocardiogram cardiogram was also performed to assess left ventricular function and cardioembolic source for stroke. Carotid ultrasound was also done. Anticoagulation was deferred to avoid hemorrhagic transformation. Neuro recommended to begin chronic anticoagulation with coumadin in one week. Cardio suggested to begin verapamil PO and wean off IV cardizem but patient never weaned off and showed any improvement because of multiple failed swallow evaluations and refusal of NG tube/PEG tube by POA. Later on IV digoxin was added for additional rate control. Patient is being admitted to hospice for symptom management. Allergies/Medications Allergies: Coded Allergies: NO KNOWN ALLERGIES (02/13/12) Past History Medical History Neurological: dementia EENT: presbycussis Cardiovascular: AFIB, CHF, hypertension, hyperlipidemia, permanent pacemaker for tachy/liz syndrome digoxin toxicity Respiratory: COPD Gastrointestinal: NONE Hepatic: NONE Renal: hyponatremia chronic renal insufficiency hematuria Musculoskeletal: osteoporosis Psychiatric: anxiety Endocrine: NONE Blood Disorders: NONE Cancer(s): NONE [employer]OUND[employer] SUPER[employer]OR/Reproductive: NONE Other Medical Hx: Lyme disease with a negative titer. vitamin D deficiency, dermatitis History of MRSA: Yes History of VRE: No History of CDIFF: No Surgical History Surgical History: PACEMAKER PLACEMENT Past Family/Social History Family History: Non-contributory Psychosocial History: Single, no children, lives at [facility]. Sister is only relative. Functional Ability: Dependent for IADLs; assistance with ADLs Review of Systems Review of Systems Constitutional: Reports: see HPI. Exam & Diagnostic Data Last 24 Hrs of Vital Signs/I&O T-97.8, HR-69, RR-20, BP-122/64 O2 sat 94% on 4lnc Physical Exam General Appearance Alert, No Acute Distress, frail, elderly female Skin warm, dry HEENT PERRL, dry mucus membranes Cardiovascular irregularly irregular, tachycardic Lungs Clear to Auscultation Abdomen Soft, No Tenderness Neurological expressive aphasia, unable to follow simple commands, alert and trying to be conversant, no spontaneous movement of right upper or lower extremities, plantar reflex equivocal right and upgoing left Extremities No Cyanosis, No Edema Diagnostic Data CXR Results Cardiomegaly without definitive evidence of an acute intrathoracic process. Other Results Head Ct: There is an evolving, acute to subacute infarction involving the left coronal radiata, caudate nucleus, putamen and external capsule. No hemorrhagic transformation is seen. There is mild local mass effect, without midline shift. The quadrigeminal plate cisterns remain patent. Assessment/Plan Assessment: 86-year-old woman with past medical history of dementia, atrial fibrillation not on anticoagulation, who sustained acute left MCA stroke with residual receptive and expressive aphasia and dysphagia, who failed multiple swallowing evaluations and is being admitted for hospice care, per sister's wishes. Plan: Morphine 1mg IV every 2 hours as needed for dyspnea/pain Ativan 0.5mg IV every 2 hours as needed for anxiety/restlessness. As needed scopolamine and Robinul for congestion. Continue digoxin 0.125mg IV every 24 hours and discontiue diltiazem drip, as discussed with sister. Continue oxygen at 4lnc. glycerin oral spray for dry mouth.
[2016-10-26 07:01] VITALS: BP 90/50
--- NOTE | 2016-10-26 13:16 | PN- Att Addend ---
Attending Addendum Attending Brief Note CLinically stable Comfortable 86-year-old woman with past medical history of dementia, atrial fibrillation not on anticoagulation, who sustained acute left MCA stroke with residual receptive and expressive aphasia and dysphagia, who failed multiple swallowing evaluations and is being admitted for hospice care, per sister's wishes. cont comfort care on hospice
--- NOTE | 2016-10-29 13:15 | Discharge Summary ---
Visit Information Visit Dates Admission Date: 10/25/16 Discharge Date: 10/27/16 Hospital Course Course Attending Physician: FUENTES GANT MD Primary Care Physician: KARINE LOZANO MD Hospital Course: 86-year-old woman with past medical history of dementia, atrial fibrillation not on anticoagulation, who sustained acute left MCA stroke with residual receptive and expressive aphasia and dysphagia, who failed multiple swallowing evaluations and is being admitted for hospice care, per sister's wishes. She was kept comfortable with morphine and ativan until she passed peacefully. Allergies: Coded Allergies: NO KNOWN ALLERGIES (02/13/12) Disposition Summary Disposition Principal Diagnosis: Acute left MCA stroke Oropharyngeal dysphagia as a result of CVA Additional Diagnosis: Atrial Fibrillation Discharge Disposition: Discharge Instructions General Discharge Information Code Status: Hospice Patient's Diet: N/A Patient's Activity: N/A Follow-Up Instructions/Appts: N/A Copies To: KARINE LOZANO MD
== END 2016-10-27 02:00 | disposition expired | DRG 66 ==
LOC: 2NA 13:32
PROVIDERS: ADMIT Internal Medicine
DX: I63.9 Cerebral infarction, unspecified (principal); I48.91 Unspecified atrial fibrillation; J44.9 Chronic obstructive pulmonary disease, unspecified; Z51.5 Encounter for palliative care; E78.5 Hyperlipidemia, unspecified; Z95.0 Presence of cardiac pacemaker; I12.9 Hypertensive chronic kidney disease with stage 1 through stage 4 chronic kidney disease, or unspecified chronic kidney disease; N18.9 Chronic kidney disease, unspecified; E55.9 Vitamin D deficiency, unspecified
CPT/HCPCS: J1160; J1630; J2060